=== PATIENT | female | born 1955 | race Caucasian/White ===

== ENCOUNTER 2017-03-27 11:23 | Inpatient (IN) ==
[2017-03-27] MEDS ORDERED: 0.9 % Sodium Chloride 1,000 ML IVC ONE (11:43)
[2017-03-27] MEDS ORDERED: cefTRIAXone 2,000 MG in Water for inj. (sterile) 20 ML IVP ONE ×2 (12:18→13:00)
[2017-03-27] MEDS ORDERED: Azithromycin 500 MG in D5% in Water 250 ML IVPB ONE (12:18)
--- NOTE | 2017-03-27 12:25 | Emergency Department Note ---
Disposition Clinical Impression: Generalized weakness, Abnormal EKG Pneumonia Qualifiers: Pneumonia type: due to unspecified organism Laterality: left Lung location: lower lobe of lung Qualified Code(s): J18.1 - Lobar pneumonia, unspecified organism Anemia Qualifiers: Anemia type: unspecified type Qualified Code(s): D64.9 - Anemia, unspecified Dyspnea Qualifiers: Dyspnea type: unspecified Qualified Code(s): R06.00 - Dyspnea, unspecified Disposition: Admitted As Inpatient Condition: Fair Time of Disposition: 13:39 General Adult HPI - General Chief complaint: ED Recheck/Abnormal Lab/Rx Stated complaint: KAY, low hgb Time Seen by Provider: 03/27/17 11:35 Source: patient, family Mode of arrival: ambulatory Limitations: no limitations Nursing Notes Reviewed: Yes Vital Signs Reviewed: Yes - History of Present Illness HPI Narrative: 61-year-old female presenting to the emergency department with chief complaint of shortness of breath, weakness and abnormal labs. Patient states yesterday she went to her primary care physician when they threw basic lab work. She states she was called today and told she needed to come to the emergency department for low hemoglobin. When looking through her charts hemoglobin yesterday was 6.8. Mild increase in creatinine but labs are otherwise within normal limits. Anemia looks to be microcytic. Patient denies any hematuria, melena or hematochezia. She denies any gum bleeding when she brushes her teeth. She states she does have a significant past medical history of COPD, hypertension and hypercholesterolemia. She states when she was younger she did not need iron supplementation for anemia but has never needed a blood transfusion. Patient states progressively over the past 3 months she has had increased weakness, shortness of breath and overall not feeling well. She denies any fevers or chest pain. She denies any nausea, vomiting or diarrhea. Pain Scale: 0 - Related Data Home Medications Medication Instructions Recorded Confirmed Albuterol Sulfate [Ventolin Hfa] 2 puff IH Q4H PRN 03/27/17 03/27/17 Amitriptyline [Elavil] 50 mg PO HS 03/27/17 03/27/17 Atorvastatin Calcium [Lipitor] 80 mg PO HS 03/27/17 03/27/17 Bupropion HCl [Wellbutrin Xl] 300 mg PO QAM 03/27/17 03/27/17 Cetirizine HCl [Zyrtec] 10 mg PO DAILY 03/27/17 03/27/17 Escitalopram [Lexapro] 20 mg PO DAILY 03/27/17 03/27/17 Metoprolol [Lopressor] 12.5 mg PO BID 03/27/17 03/27/17 Omeprazole [PriLOSEC] 20 mg PO BIDAC 03/27/17 03/27/17 Potassium Chloride [K-Tab ER] 10 meq PO DAILY 03/27/17 03/27/17 Ranitidine HCl [Zantac] 150 mg PO BID 03/27/17 03/27/17 SUMAtriptan succinate [Imitrex] 50 mg PO Q2H PRN 03/27/17 03/27/17 Tramadol HCl [Ultram] 50 mg PO Q6H PRN 03/27/17 03/27/17 hydroCHLOROthiazide 25 mg PO DAILY 03/27/17 03/27/17 [Hydrochlorothiazide] Allergies Allergy/AdvReac Type Severity Reaction Status Date / Time lorazepam AdvReac TACHYCARDIA Verified 03/27/17 13:16 All systems ED: reviewed and negative except as stated. Constitutional: Denies: fever, chills Eyes: Reports: as per HPI ENT ED: Reports: as per HPI Cardiovascular: Denies: chest pain, palpitations Respiratory: Reports: dyspnea. Denies: cough, wheezes, hemoptysis Gastrointestinal: Denies: abdominal pain, nausea, vomiting, hematemesis, melena , hematochezia Genitourinary: Reports: as per HPI Musculoskeletal: Reports: as per HPI Integumentary: Denies: rash, abrasion, lesions Neurological: Reports: weakness. Denies: numbness, paresthesias Psychiatric: Reports: as per HPI Endocrine: Reports: as per HPI Hematological/Lymphatic: Reports: as per HPI Allergic/Immunologic: Reports: as per HPI Past Medical History - Past Medical History Attestation: Yes The following information was validated with the patient. Medical history: Reports: hyperlipidemia, hypertension Psychiatric history: Reports: depression - Social History Smoking Status: Never smoker Alcohol use: Reports: none Drug use: Reports: none Physical Exam - General Limitations: no limitations General appearance: alert, in no apparent distress - Head Head exam: atraumatic, normocephalic, normal inspection - Eye Eye exam: Present: normal appearance. Absent: scleral icterus, conjunctival injection - ENT ENT exam: normal exam, normal oropharynx - Chest Chest inspection: Present: normal inspection, symmetric chest wall rise. Absent : tenderness, rash - Respiratory Respiratory exam: Present: normal lung sounds bilaterally. Absent: respiratory distress, wheezes - Cardiovascular Cardiovascular exam: Present: normal rhythm, tachycardia, normal heart sounds - Abdominal Exam Abdominal exam: Present: soft, Non-Tender. Absent: distention, guarding, rebound - Rectal Exam Rectal exam: Present: normal inspection, normal rectal tone, heme (-) stool. Absent: black stool, bloody stool, fecal impaction - Extremities Exam Extremities exam: Present: normal inspection, full ROM - Neurological Exam Neurological exam: Present: alert, oriented X3 - Psychiatric Psychiatric exam: Present: normal affect, normal mood - Skin Skin exam: Present: warm, intact Course Course Narrative: 61-year-old female presenting to the emergency department with chief complaint of low hemoglobin and overall weakness. Patient denies any chest pain, fever passing out this time. Patient's hemoglobin drawn yesterday was 6.8. It showed microcytic anemia. We will perform a stool occult test along with basic lab work including CBC, BMP, type and screen, EKG, troponin and chest x-ray. Patient is mildly tachycardic in the room with heart rate ranging from upper 90s to low 100s. Vital signs are otherwise within normal limits. She is nontoxic appearing. She agrees with this plan. Disposition most likely will be transfusion and admission. Disposition pending laboratory and imaging results. - Reevaluation(s) Reevaluation #1: Chest x-ray shows pneumonia. We will add Rocephin and Zithromax at this time. Patient's bedside stool occult is negative. All other labs and urinalysis are still pending at this time. We will also provide the patient with a 1 L fluid bolus. Additional lab work including lactic acid added at this time. Patient' s alert and oriented 3 in the room. Vital signs at this time. Patient agrees with this plan. Reevaluation #2: Patient's lactic acid within normal limits. Patient agrees to be admitted at this time for blood transfusion and pneumonia treatment. Patient is alert and oriented 3 in the room with stable vital signs. The admitting physician Dr. Nice agrees to accept the patient at this time. Time: 13:38 Vital Signs Temperature 97.5 F L 03/27/17 11:30 Pulse Rate 101 03/27/17 11:30 Respiratory Rate 16 03/27/17 11:30 Blood Pressure 131/87 03/27/17 11:30 O2 Sat by Pulse Oximetry 99 03/27/17 11:30 Temperature 97.5 F L 03/27/17 11:30 Pulse Rate 79 03/27/17 13:15 Respiratory Rate 16 03/27/17 13:15 Blood Pressure 112/82 03/27/17 13:15 O2 Sat by Pulse Oximetry 100 03/27/17 13:15 Oxygen Delivery Oxygen Delivery Room Air Medical Decision Making - Lab Data Result diagrams: 03/27/17 12:19 03/27/17 12:19 Lab Results 03/27/17 03/27/17 03/27/17 Range/Units 12:19 12:19 12:19 WBC 7.4 (4.3-11.1) K/mcL RBC 3.90 (3.82-4.97) M/mcL Hgb 6.9 L (11.5-15.4) g/dL Hct 25.2 L (35.3-44.9) % MCV 64.6 L (83.0-100.0) fL MCH 17.7 L (28.0-33.3) pg MCHC 27.4 L (31.6-35.5) g/dL RDW 17.9 H (11.5-14.5) % Plt Count 552 H (140-400) K/mcL MPV 8.6 L (9.4-12.4) fL Immature Gran % 0.3 (0-4) % Seg Neutrophils % 64.7 % Lymphocytes % 26.6 % Monocytes % 6.5 % Eosinophils % 1.1 % Basophils % 0.8 % Neutrophils # 4.8 (1.6-8.9) K/mcL Lymphocytes # 2.0 (0.6-4.6) K/mcL Monocytes # 0.5 (0.0-1.3) K/mcL Eosinophils # 0.1 (0.0-0.6) K/mcL Basophils # 0.1 (0.0-0.2) K/mcL Platelet Estimate Increased H (Normal) Polychromasia 1+ A (Not Present) Hypochromasia Present A (Not Present) Anisocytosis 1+ A (Not Present) Microcytosis Present A (Not Present) Ovalocytes 1+ A (Not Present) Sodium 138 (136-145) mEq/L Potassium 3.8 (3.5-4.5) mEq/L Chloride 105 (98-109) mEq/L Carbon Dioxide 25 (19-29) mEq/L BUN 14 (7-20) mg/dL Creatinine 1.09 (0.57-1.11) mg/dL Est GFR ( Amer) > 60 (> 60) Est GFR (Non-Af Amer) 51 L (> 60) BUN/Creatinine Ratio 13 (6-26) Glucose 139 H (70-99) mg/dL Calculated Osmolality 289 (280-300) Lactic Acid (0.5-2.2) mmol/L Calcium 9.4 (8.6-10.8) mg/dL Troponin I (0-0.03) ng/mL Blood Type O POSITIVE Antibody Screen NEGATIVE Crossmatch See Detail 03/27/17 03/27/17 Range/Units 12:19 12:32 WBC (4.3-11.1) K/mcL RBC (3.82-4.97) M/mcL Hgb (11.5-15.4) g/dL Hct (35.3-44.9) % MCV (83.0-100.0) fL MCH (28.0-33.3) pg MCHC (31.6-35.5) g/dL RDW (11.5-14.5) % Plt Count (140-400) K/mcL MPV (9.4-12.4) fL Immature Gran % (0-4) % Seg Neutrophils % % Lymphocytes % % Monocytes % % Eosinophils % % Basophils % % Neutrophils # (1.6-8.9) K/mcL Lymphocytes # (0.6-4.6) K/mcL Monocytes # (0.0-1.3) K/mcL Eosinophils # (0.0-0.6) K/mcL Basophils # (0.0-0.2) K/mcL Platelet Estimate (Normal) Polychromasia (Not Present) Hypochromasia (Not Present) Anisocytosis (Not Present) Microcytosis (Not Present) Ovalocytes (Not Present) Sodium (136-145) mEq/L Potassium (3.5-4.5) mEq/L Chloride (98-109) mEq/L Carbon Dioxide (19-29) mEq/L BUN (7-20) mg/dL Creatinine (0.57-1.11) mg/dL Est GFR ( Amer) (> 60) Est GFR (Non-Af Amer) (> 60) BUN/Creatinine Ratio (6-26) Glucose (70-99) mg/dL Calculated Osmolality (280-300) Lactic Acid 1.8 (0.5-2.2) mmol/L Calcium (8.6-10.8) mg/dL Troponin I 0.00 (0-0.03) ng/mL Blood Type Antibody Screen Crossmatch - EKG Data EKG #1 EKG attestation: Yes I reviewed and interpreted this EKG. EKG results narrative: Sinus rhythm. 99 bpm. Normal axis. DE interval 176, QRS 82, QTC 392. Moderate T-wave abnormality noted in the lateral leads. No signs of ST segment elevation or acute ischemia. When compared to previous EKG completed on 2012 new T-wave abnormalities noted. Attestation Statement - Attestation Attestation: I examined this patient and my medical decision-making was reviewed with the Resident Physician, Dr. Aaron. I agree with the documented findings, disposition and treatment plan as described except to the extent set forth below. Patient is a 61-year-old white female who presents to the emergency department after she received a call from her family physician telling her that her hemoglobin was low based on recent labs. She recommended that she come to the emergency department her evaluation. Patient reports that she saw her family doctor because she has had a one-month history of gradually worsening generalized weakness and dyspnea with exertion. Patient states when she was seen in the office by her doctor doctor felt that she "looked terrible", and ordered outpatient labs. Patient was told that today her hemoglobin came back at 6.8 and this was drawn yesterday. Patient has a remote history of iron deficiency anemia. Patient denies any bright red blood per rectum, no tarry black stools, no vomiting blood and no symptoms of lightheadedness or syncope. Patient denies any chest pain pressure or heaviness, and no shortness of breath at rest. I agree with patient's physical exam findings as documented. Vital signs were stable on arrival with the exception of mild tachycardia at 101 bpm. Patient was in no acute distress or signs of respiratory distress on arrival. Patient was placed on brush maker and continuous pulse ox EKG was obtained which shows some new lateral ST depression compared to prior EKG. Patient received aspirin on arrival. Patient had labs drawn and sent. Patient with stable anemia with today's hemoglobin at 6.9. Bedside rectal exam with guaiac testing was negative for any microscopic or gross blood. Patient was typed and screened and a unit of blood was ordered to be started in the emergency department, transfusion consent was signed and placed on the chart. On patient' s workup we discovered a left lower lobe pneumonia which is new and unknown to the patient. Patient was started on IV fluids for the tachycardia, lactate was added, blood cultures were obtained and show was started on community-acquired pneumonia antibiotics. Patient's heart rate responded nicely to IV fluid bolus. Lactate was within normal limits. Patient's respiratory status status has remained stable throughout the emergency Department exam. Case was discussed with the hospitalist who accepted the patient for admission for dyspnea, microcytic hypochromic anemia, left lower lobe pneumonia, and abnormal EKG. Patient's initial troponin in the emergency Department was 0.00, patient has been chest pain free throughout her ED course.
[2017-03-27 12:30] LABS: Immature Granulocytes % 0.3 % (0-4); Red Cell Distribution Width 17.9 % (11.5-14.5)
[2017-03-27 12:31] LABS: Basophils # 0.1 K/mcL (0.0-0.2); Basophils % 0.8 %; Eosinophils # 0.1 K/mcL (0.0-0.6); Eosinophils % 1.1 %; Hematocrit 25.2 % (35.3-44.9); Lymphocytes % 26.6 %; Mean Corpuscular HGB Conc 27.4 g/dL (31.6-35.5); Mean Corpuscular Hemoglobin 17.7 pg (28.0-33.3); Mean Corpuscular Volume 64.6 fL (83.0-100.0); Mean Platelet Volume 8.6 fL (9.4-12.4); Monocytes # 0.5 K/mcL (0.0-1.3); Monocytes % 6.5 %; Neutrophils # 4.8 K/mcL (1.6-8.9); Platelet Count 552 K/mcL (140-400); Segmented Neutrophils % 64.7 %
[2017-03-27 12:41] LABS: BUN/Creatinine Ratio 13 (6-26); Blood Urea Nitrogen 14 mg/dL (7-20); Calcium 9.4 mg/dL (8.6-10.8); Carbon Dioxide 25 mEq/L (19-29); Chloride 105 mEq/L (98-109); Glucose 139 mg/dL (70-99); Osmolality,Calculated 289 (280-300); Potassium 3.8 mEq/L (3.5-4.5); Sodium 138 mEq/L (136-145); eGFR For African Americans > 60 (> 60); eGFR For Non-African Americans 51 (> 60)
[2017-03-27 12:51] LABS: Hemoglobin 6.9 g/dL (11.5-15.4)
[2017-03-27 12:59] LABS: Platelet Estimate Increased (Normal)
[2017-03-27 13:00] LABS: Anisocytosis 1+ (Not Present); Hypochromasia Present (Not Present); Microcytosis Present (Not Present); Ovalocytes 1+ (Not Present)
[2017-03-27 13:01] LABS: Polychromasia 1+ (Not Present)
[2017-03-27 13:53] LABS: Bilirubin,Urine Negative (Negative); Blood,Urine Negative (Negative); Clarity,Urine Clear (Clear); Color,Urine Yellow (Yellow); Glucose,Urine (UA) Normal (Normal); Ketones,Urine Negative (Negative); Leukocyte Esterase,Urine Small (Negative); Nitrite,Urine Negative (Negative); Protein,Urine Negative (Neg-Trace); Specific Gravity,Urine 1.009 (1.010-1.025); Urobilinogen,Urine Normal (Normal)
[2017-03-27 13:56] LABS: Bacteria,Urine None Seen per hpf (None-Few); Hyaline Casts,Urine None Seen per lpf (None-Few); RBC,Urine 0-3 per hpf (0-3); Squamous Epithelial Cell,Urine Moderate per lpf (None-Few); WBC,Urine 0-3 per hpf (0-3)
[2017-03-27] MEDS ORDERED: 0.9 % Sodium Chloride 250 ML ONE (15:47)
[2017-03-27] MEDS ORDERED: traMADol 50 MG TABLET PO PRN (22:32)
[2017-03-27] MEDS ORDERED: Naloxone 0.4 MG/ML INJ IVP PRN (22:33)
--- NOTE | 2017-03-27 22:40 | Internal Med History&Physical ---
Date of Encounter: 03/27/17 Time of Encounter: 22:38 Assessment and Plan (1) Anemia Current visit: Yes Status: Acute send fe studies to confirm 1 prbc in the ED recheck H&H consult GI to eval for possible source ? Qualifiers: Anemia type: unspecified type Qualified Code(s): D64.9 - Anemia, unspecified (2) Dyspnea Current visit: Yes Status: Acute 2/2 symptomatic anemia doubt PNA Qualifiers: Dyspnea type: unspecified Qualified Code(s): R06.00 - Dyspnea, unspecified (3) Generalized weakness Current visit: Yes Status: Acute 2/2 above (4) Abnormal EKG Current visit: Yes Status: Acute related to demand from anemia recheck in the a.m after prbc Internal Medicine - H&P: HPI Chief complaint: SOB, pre-syncope History of present illness: Ms. Back is a 61 year old female who presents with SOB, pre-syncope. Found to have symptomatic anemia. She reports symptoms of a couple months of fatigue but in the last few days, got acutely worse with SOB on exertion - mild around home and pre-syncope. Denies any vaginal or GI bleed. She is not a vegan. ROS negative for cough or sputum EKG with T waver changes, [address]/CT angio chest IMPRESSION: No evidence of pulmonary embolism or acute pulmonary abnormality. XR/XR chest 1V portable IMPRESSION: Atelectasis or pneumonia in the right lung base Past Med Surg Social Fam HX - Past Medical History Medical history: hyperlipidemia, hypertension Psychiatric history: depression - Social History Smoking Status: Never smoker Alcohol use: none Drug use: none - Family History Mother Living Status: Hx Family Cardiac Disorders: Yes Father Living Status: Hx Family Cardiac Disorders: Yes Brother Living Status: Still Living Hx Family Cardiac Disorders: Yes Internal Medicine - H&P: Meds Albuterol Sulfate [Ventolin Hfa] 2 puff IH Q4H PRN 03/27/17 [History] Amitriptyline [Elavil] 50 mg PO HS 03/27/17 [History] Atorvastatin Calcium [Lipitor] 80 mg PO HS 03/27/17 [History] Bupropion HCl [Wellbutrin Xl] 300 mg PO QAM 03/27/17 [History] Cetirizine HCl [Zyrtec] 10 mg PO DAILY 03/27/17 [History] Escitalopram [Lexapro] 20 mg PO DAILY 03/27/17 [History] Metoprolol [Lopressor] 12.5 mg PO BID 03/27/17 [History] Omeprazole [PriLOSEC] 20 mg PO BIDAC 03/27/17 [History] Potassium Chloride [K-Tab ER] 10 meq PO DAILY 03/27/17 [History] Ranitidine HCl [Zantac] 150 mg PO BID 03/27/17 [History] SUMAtriptan succinate [Imitrex] 50 mg PO Q2H PRN 03/27/17 [History] Tramadol HCl [Ultram] 50 mg PO Q6H PRN 03/27/17 [History] hydroCHLOROthiazide [Hydrochlorothiazide] 25 mg PO DAILY 03/27/17 [History] 3 Allergy/AdvReac Type Severity Reaction Status Date / Time lorazepam AdvReac TACHYCARDIA Verified 03/27/17 13:16 All Systems PM: A 10-system review of systems was performed and is negative for pertinent findings except as documented above in the HPI. Review of systems: ROS 14 point review of systems reviewed as best as possible given presentation. Pertinent positive or negative as per HPI or otherwise reviewed as negative - Constitutional Vitals: Temp Pulse Resp BP Pulse Ox 97.8 F 96 18 137/84 98 03/27/17 20:00 03/27/17 20:00 03/27/17 20:00 03/27/17 20:00 03/27/17 20:00 Exam: General - AAO x 3 Psych - Appropriate affect/speech. No agitation Eyes - ADDY. Eye lids intact. No scleral icterus Heart - Sinus. RRR. S1 and S2 present. No added HS/murmurs appreciated. No elevated JVD appreciated. Lung - Adequate air entry b/l, No crackles/wheezes appreciated GI - Soft, non-tender. No hepatosplenomegaly/ascites. BS+ - No CVA/suprapubic tenderness or palpable bladder distension Internal Med - H&P Results - Labs CBC & Chem 7: 03/27/17 12:19 03/27/17 12:19 Labs: Urine 03/27/17 Range/Units 13:45 Urine Color Yellow (Yellow) Urine Clarity Clear (Clear) Urine pH 7.0 (5.0-8.0) pH Units Ur Specific [place] 1.009 L (1.010-1.025) Urine Protein Negative (Neg-Trace) mg/dL Urine Glucose (UA) Normal (Normal) mg/dL
[2017-03-27] MEDS: 0.9 % Sodium Chloride 1,000 ML IVC SCH (22:46)
[2017-03-28] MEDS ORDERED: Melatonin 3 MG TABLET PO PRN (00:02)
[2017-03-28 05:14] LABS: Mean Corpuscular Volume 67.3 fL (83.0-100.0)
[2017-03-28 05:15] LABS: Basophils # 0.1 K/mcL (0.0-0.2); Basophils % 0.6 %; Eosinophils # 0.2 K/mcL (0.0-0.6); Eosinophils % 1.9 %; Hematocrit 24.5 % (35.3-44.9); Hemoglobin 6.7 g/dL (11.5-15.4); Immature Granulocytes % 0.1 % (0-4); Lymphocytes # 2.7 K/mcL (0.6-4.6); Lymphocytes % 32.2 %; Mean Corpuscular HGB Conc 27.3 g/dL (31.6-35.5); Mean Corpuscular Hemoglobin 18.4 pg (28.0-33.3); Mean Platelet Volume 8.5 fL (9.4-12.4); Monocytes # 0.6 K/mcL (0.0-1.3); Monocytes % 6.8 %; Platelet Count 472 K/mcL (140-400); Red Blood Count 3.64 M/mcL (3.82-4.97); Red Cell Distribution Width 20.4 % (11.5-14.5); Segmented Neutrophils % 58.4 %
[2017-03-28 05:30] LABS: % Iron Saturation 5 % (15-50); BUN/Creatinine Ratio 12 (6-26); Blood Urea Nitrogen 11 mg/dL (7-20); Calcium 9.1 mg/dL (8.6-10.8); Carbon Dioxide 27 mEq/L (19-29); Chloride 108 mEq/L (98-109); Glucose 101 mg/dL (70-99); Iron 21 mcg/dL (50-170); Osmolality,Calculated 290 (280-300); Potassium 3.8 mEq/L (3.5-4.5); Sodium 140 mEq/L (136-145); Transferrin 280 mg/dL (180-382); eGFR For African Americans > 60 (> 60); eGFR For Non-African Americans 60 (> 60)
[2017-03-28 05:32] LABS: Anisocytosis 1+ (Not Present); Hypochromasia Present (Not Present); Microcytosis Present (Not Present); Ovalocytes 1+ (Not Present); Platelet Estimate Increased (Normal); Poikilocytosis 1+ (Not Present)
[2017-03-28 05:45] LABS: Ferritin 5 ng/ml (5-204)
--- NOTE | 2017-03-28 07:20 | Electrocardiograph Report ---
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
[2017-03-28] MEDS: hydroCHLOROthiazide 25 MG TABLET PO SCH (08:14)
[2017-03-28] MEDS: Famotidine 20 MG TABLET PO SCH ×2 (08:15→17:27)
[2017-03-28] MEDS: BuPROPion XL (24 HR) 150 MG TABLET PO SCH (08:15)
[2017-03-28] MEDS: Loratadine 10 MG TABLET PO SCH (08:15)
[2017-03-28] MEDS: 0.9 % Sodium Chloride 1,000 ML IVC SCH (08:20)
[2017-03-28] MEDS ORDERED: 0.9 % Sodium Chloride 500 ML ONE ×2 (08:54→14:20)
[2017-03-28] MEDS ORDERED: Levofloxacin 500 MG/100 ML 500 MG/100 ML BAG IVPB SCH (09:00)
[2017-03-28] MEDS: Acetaminophen 325 MG TABLET PO PRN ×2 (11:38→17:36)
--- NOTE | 2017-03-28 14:43 | Internal Med Progress Note ---
Date of Encounter: 03/28/17 Time of Encounter: 11:15 - Assessment and plan (1) Anemia Current Visit: Yes Status: Acute Assessment and plan: patient with severe anemia. Uncertain etiology. Gastroenterology consulted.hemoglobin 6.7 this morning. We will transfuse 2 more units of packed red blood cells. Keep patient on clear liquid diet. Continue to monitor blood counts. Patient will most likely need upper GI endoscopy and colonoscopy. Iron studies showed low iron levels and saturation. Will start patient on iron replacement therapy Qualifiers: Anemia type: iron deficiency Iron deficiency anemia type: unspecified iron deficiency Qualified Code(s): D50.9 - Iron deficiency anemia, unspecified (2) Dyspnea Current Visit: Yes Status: Acute Assessment and plan: Improving. Most likely due to anemia. Review chest x-ray. No clear infiltrate. We will repeat chest x-ray today to confirm. For now continue to hold antibiotics. Qualifiers: Dyspnea type: shortness of breath Qualified Code(s): R06.02 - Shortness of breath; R06.00 - Dyspnea, unspecified; R06.01 - Orthopnea (3) Generalized weakness Current Visit: Yes Status: Acute Assessment and plan: Most likely related to anemia. We will consult physical therapy for evaluation once her blood counts improve. (4) Abnormal EKG Current Visit: Yes Status: Acute Assessment and plan: Troponins are negative. Likely from demand ischemia due to anemia. - Subjective Interval history: Patient is awake and alert. Continues to feel tired. Denies any hematemesis or melena. No chest pain. Does have occasional heartburn. Denies using any NSAIDs at home. - Constitutional Vitals: Temp Pulse Resp BP Pulse Ox 98.0 F 76 16 138/83 96 03/28/17 12:49 03/28/17 12:49 03/28/17 12:49 03/28/17 12:49 03/28/17 09:58 General appearance: Present: cooperative, A&O X 3, answers questions appropriately - Respiratory Respiratory exam: Present: CTAB. Absent: accessory muscle use, rales, rhonchi, wheezes - Cardiovascular Cardiovascular exam: Present: RRR, +S1, +S2. Absent: diastolic murmur, gallop, rubs, systolic murmur - GI/Abdominal GI/Abdominal exam: Present: normal bowel sounds, soft, no peritoneal signs. Absent: distended, tenderness - Extremities Exam Extremities exam: Present: warm, radial pulses palpable and symmetrical. Absent : calf tenderness, cyanotic, pedal edema - Neurological Exam Neurological exam: Present: alert, CN II-XII intact, oriented X3, no focal deficits. Absent: facial droop, speech deficit - Skin Skin exam: Present: dry, intact Internal Medicine: Result - Labs CBC & Chem 7: 03/28/17 05:04 03/28/17 05:04 Labs: Short CBC 03/28/17 Range/Units 05:04 WBC 8.5 (4.3-11.1) K/mcL Hgb 6.7 L (11.5-15.4) g/dL Hct 24.5 L (35.3-44.9) % Plt Count 472 H (140-400) K/mcL Neutrophils # 5.0 (1.6-8.9) K/mcL BMP 03/28/17 05:04 Sodium 140 Potassium 3.8 Chloride 108 Carbon Dioxide 27 BUN 11 Creatinine 0.95 Glucose 101 H Calcium 9.1 Consult Discharge Plan - Plan Referrals: Gisele House MD [Primary Care Provider] -
[2017-03-28] MEDS ORDERED: Vancomycin 1,250 MG in D5% in Water 250 ML IVPB SCH ×2 (16:00→17:00)
[2017-03-28] MEDS ORDERED: SODIUM CHLORIDE/NAHCO3/KCL/PEG 4,000 ML SOLN.RECON PO ONE (17:00)
[2017-03-29 03:53] LABS: Basophils # 0.1 K/mcL (0.0-0.2); Basophils % 0.5 %; Eosinophils # 0.2 K/mcL (0.0-0.6); Eosinophils % 1.9 %; Hematocrit 36.5 % (35.3-44.9); Immature Granulocytes % 0.3 % (0-4); Lymphocytes # 2.5 K/mcL (0.6-4.6); Lymphocytes % 24.1 %; Mean Corpuscular HGB Conc 29.6 g/dL (31.6-35.5); Mean Corpuscular Hemoglobin 20.8 pg (28.0-33.3); Mean Corpuscular Volume 70.5 fL (83.0-100.0); Mean Platelet Volume 8.8 fL (9.4-12.4); Monocytes # 0.6 K/mcL (0.0-1.3); Monocytes % 6.3 %; Neutrophils # 6.8 K/mcL (1.6-8.9); Platelet Count 562 K/mcL (140-400); Red Blood Count 5.18 M/mcL (3.82-4.97); Red Cell Distribution Width 22.6 % (11.5-14.5); Segmented Neutrophils % 66.9 %
[2017-03-29 03:54] LABS: Hemoglobin 10.8 g/dL (11.5-15.4)
[2017-03-29 04:03] LABS: BUN/Creatinine Ratio 8 (6-26); Blood Urea Nitrogen 8 mg/dL (7-20); Calcium 9.4 mg/dL (8.6-10.8); Carbon Dioxide 23 mEq/L (19-29); Chloride 107 mEq/L (98-109); Glucose 111 mg/dL (70-99); Osmolality,Calculated 287 (280-300); Potassium 4.1 mEq/L (3.5-4.5); Sodium 139 mEq/L (136-145); eGFR For African Americans > 60 (> 60); eGFR For Non-African Americans 58 (> 60)
--- NOTE | 2017-03-29 08:03 | Anesthesia Evaluation PreOp ---
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) Other Medical History: GERD Anesthesia History: No Prior Anesthetic Complications, Past Anesthesia Alcohol Use: none Drug use: none Medications and Allergies Albuterol Sulfate [Ventolin Hfa] 2 puff IH Q4H PRN 03/27/17 [History] Amitriptyline [Elavil] 50 mg PO HS 03/27/17 [History] Atorvastatin Calcium [Lipitor] 80 mg PO HS 03/27/17 [History] Bupropion HCl [Wellbutrin Xl] 300 mg PO QAM 03/27/17 [History] Cetirizine HCl [Zyrtec] 10 mg PO DAILY 03/27/17 [History] Escitalopram [Lexapro] 20 mg PO DAILY 03/27/17 [History] Metoprolol [Lopressor] 12.5 mg PO BID 03/27/17 [History] Omeprazole [PriLOSEC] 20 mg PO BIDAC 03/27/17 [History] Potassium Chloride [K-Tab ER] 10 meq PO DAILY 03/27/17 [History] Ranitidine HCl [Zantac] 150 mg PO BID 03/27/17 [History] SUMAtriptan succinate [Imitrex] 50 mg PO Q2H PRN 03/27/17 [History] Tramadol HCl [Ultram] 50 mg PO Q6H PRN 03/27/17 [History] hydroCHLOROthiazide [Hydrochlorothiazide] 25 mg PO DAILY 03/27/17 [History] 3 Allergy/AdvReac Type Severity Reaction Status Date / Time lorazepam AdvReac TACHYCARDIA Verified 03/27/17 13:16 - Meds/Allergy Pre-op Review Medications Reviewed: Yes Allergies Reviewed: Yes Beta Blockers on Current Med List: Yes If Beta Blockers taken, Date/Time (Last Dose taken): 03/29/2017 at 0724 Anesthesia Results - Labs 03/29/17 03:37 03/29/17 03:37 - Imaging EKG: report reviewed (03/27/[address] DEVIATION AND MODERATE T-WAVE ABNORMALITY, CONSIDER LATERAL ISCHEMIA [-0.1+ mV T WAVE IN I/aVL/V5/V6]) Anesthesia Exam Vital Signs/O2 Sat, Most Current Temp Pulse Resp BP Pulse Ox 97.9 F 82 15 133/90 97 03/29/17 04:00 03/29/17 04:00 03/29/17 04:00 03/29/17 04:00 03/28/17 20:45 Height: 5'3''/1.6 m Weight: 197 lbs/89.4 kg NPO (# of Hours): 8 Pain Scale: 0 Pain Scale Used: Numeric (1 - 10) - HEENT Pupil (Motor): EOMI Mallampati: II Teeth: Edentulous Oral Opening: Greater than 3 - INDUSTRIAL RADIOGRAPHER LOC: Oriented INDUSTRIAL RADIOGRAPHER Motor: Normal RUE, Normal LUE, Normal RLE, Normal LLE, Normal Face INDUSTRIAL RADIOGRAPHER Sensory: Normal: RUE, LUE, RLE, LLE, Face - Cardiac Rhythm: Regular Murmur: None - Pulmonary Breath Sounds: bilateral Clear Respiratory Effort: Symmetrical Anesthesia Assess/Plan ASA Score: 3 Modified Jorge Scale for Level of Consciousness: Cooperative, oriented, and tranquil Anesthetic Plan: MAC Monitoring Plan: Standard Monitors
[2017-03-29 08:09] VITALS: BP 152/99
[2017-03-29] MEDS ORDERED: *HR* Propofol 200 MG/20 ML VIAL IVP ONE ×2 (08:09→08:33)
[2017-03-29] MEDS ORDERED: Simethicone 40 MG/0.6 ML MLS IR ONE (08:16)
[2017-03-29] MEDS ORDERED: Tetracaine/Benzocaine/Butamben 200MG/SPRAY (100SPY/BOT) MM ONE (08:16)
[2017-03-29] MEDS ORDERED: Ipratropium/Albuterol Neb 3 ML ONE (08:54)
[2017-03-29] MEDS: Famotidine 20 MG TABLET PO SCH (09:49)
[2017-03-29] MEDS: BuPROPion XL (24 HR) 150 MG TABLET PO SCH (09:50)
[2017-03-29] MEDS: hydroCHLOROthiazide 25 MG TABLET PO SCH (09:50)
[2017-03-29] MEDS: Loratadine 10 MG TABLET PO SCH (09:50)
--- NOTE | 2017-03-29 14:24 | Discharge Summary ---
Date of Encounter: 03/29/17 Time of Encounter: 11:20 - Discharge Diagnosis (1) Gastritis and duodenitis Priority: Primary Status: Acute (2) Anemia Priority: Secondary Status: Acute Qualifiers: Anemia type: iron deficiency Iron deficiency anemia type: chronic blood loss Qualified Code(s): D50.0 - Iron deficiency anemia secondary to blood loss (chronic) (3) Dyspnea Priority: Secondary Status: Acute Qualifiers: Dyspnea type: shortness of breath Qualified Code(s): R06.02 - Shortness of breath; R06.00 - Dyspnea, unspecified; R06.01 - Orthopnea (4) Generalized weakness Priority: Secondary Status: Acute (5) Abnormal EKG Priority: Secondary Status: Acute (6) Asymptomatic bacteriuria Priority: Secondary Status: Acute - Discharge Medications Prescriptions: Ferrous Sulfate [Iron] 325 mg PO BID #60 tablet Nitrofurantoin (BID) [Macrobid] 100 mg PO BID #6 capsule Home Medications: Albuterol Sulfate [Ventolin Hfa] 2 puff IH Q4H PRN 03/27/17 [History] Amitriptyline [Elavil] 50 mg PO HS 03/27/17 [History] Atorvastatin Calcium [Lipitor] 80 mg PO HS 03/27/17 [History] Bupropion HCl [Wellbutrin Xl] 300 mg PO QAM 03/27/17 [History] Cetirizine HCl [Zyrtec] 10 mg PO DAILY 03/27/17 [History] Escitalopram [Lexapro] 20 mg PO DAILY 03/27/17 [History] Metoprolol [Lopressor] 12.5 mg PO BID 03/27/17 [History] Omeprazole [PriLOSEC] 20 mg PO BIDAC 03/27/17 [History] Potassium Chloride [K-Tab ER] 10 meq PO DAILY 03/27/17 [History] Ranitidine HCl [Zantac] 150 mg PO BID 03/27/17 [History] SUMAtriptan succinate [Imitrex] 50 mg PO Q2H PRN 03/27/17 [History] Tramadol HCl [Ultram] 50 mg PO Q6H PRN 03/27/17 [History] hydroCHLOROthiazide [Hydrochlorothiazide] 25 mg PO DAILY 03/27/17 [History] Ferrous Sulfate [Iron] 325 mg PO BID #60 tablet 03/29/17 [Rx] Nitrofurantoin (BID) [Macrobid] 100 mg PO BID #6 capsule 03/29/17 [Rx] Allergies/Adverse Reactions: 3 Allergy/AdvReac Type Severity Reaction Status Date / Time lorazepam AdvReac TACHYCARDIA Verified 03/27/17 13:16 Procedures/tests Complete & Pending: Procedures Performed prior 72 hours Category Date Time Status EKG [ECG 12 lead ECG] [ECG] AM 0600 Y 03/28/17 06:00 Ordered Date of admission: 03/27/17 22:33 Primary care physician: Gisele House, Consults: 03/27/17 22:36 Consult to Gastroenterology [CONS] Routine Consulting Provider: Joseology Mary Beth Reason for Consult: anemia eval Call Completed: No Discharging clinician: Stepan Lancaster Anticipated date of discharge: 03/29/17 - Patient Status Disposition: Home, Self-Care Condition: Good Functional capacity at discharge: independent ambulation Overall status at discharge: patient is progressing back to baseline - Discharge Instructions Instructions: Anemia (GEN) Follow Up With: Gisele House MD [Primary Care Provider] - (in 1-2 weeks) Nishant Goldstein MD [Partnered Physician] - (in 1-2 weeks) Additional Instructions: pcp requested - Diet and Activity Activity: increase activity as tolerated Diet: low fat, low cholesterol, low salt diet Hospital course: Ms. Back is a 61 year old female patient who presented to the ER with complaints of exertional dyspnea and presyncope. She was found to have significant anemia with hemoglobin of 6.9. She was hospitalized and given transfusion of 3 units of packed red blood cells. Gastroenterology was consulted to evaluate for any GI bleed. Patient underwent upper GI endoscopy and colonoscopy today. She was found to have some gastritis and duodenitis. She does have iron deficiency anemia. She also had diverticulosis and a colon polyp. She does not have any agnes hematemesis or melena. She has been recommended capsule endoscopy as outpatient and this will be arranged through GI. At this time patient is feeling much better and is clinically stable for discharge home. She will need to continue to take iron supplements. Her urine culture is growing gram-positive cocci although patient is asymptomatic. She will complete a short treatment course with Macrobid. - Time Spent with Patient Total time spent providing and/or coordinating discharge services: Greater than 30 minutes (35 min) - Constitutional Vitals: Temp Pulse Resp BP Pulse Ox 98.2 F 85 18 152/99 96 03/29/17 08:04 03/29/17 08:04 03/29/17 08:04 03/29/17 08:04 03/29/17 08:04 General appearance: Present: cooperative, A&O X 3, answers questions appropriately - Respiratory Respiratory exam: Present: CTAB. Absent: accessory muscle use, rales, rhonchi, wheezes - Cardiovascular Cardiovascular exam: Present: RRR, +S1, +S2. Absent: diastolic murmur, gallop, rubs, systolic murmur - GI/Abdominal GI/Abdominal exam: Present: normal bowel sounds, soft, no peritoneal signs. Absent: distended, tenderness - Extremities Exam Extremities exam: Present: warm, radial pulses palpable and symmetrical. Absent : calf tenderness, cyanotic, pedal edema - Neurological Exam Neurological exam: Present: CN II-XII intact, oriented X3, no focal deficits. Absent: facial droop, speech deficit - Skin Skin exam: Present: dry, intact
[2017-03-29] MEDS ORDERED: Tetracaine/Benzocaine/Butamben 200MG/SPRAY (100SPY/BOT) ONE (14:34)
[2017-03-29] MEDS ORDERED: FLUARIX QUAD 2017-18 36MOS UP/PF 0.5 ML SYRINGE IM ONE (14:50)
[2017-03-29] MEDS ORDERED: Aminoglycoside Consult 1 EACH MC ONE (16:00)
--- NOTE | 2017-04-03 06:53 | Electrocardiograph Report ---
[place] [id number] Test Date: 2017-03-29 Pat Name: Chiquis Back Department: 111 Room: 2NE30 Gender: F Squilgeer: LUISA : 1955 Requested By: Stepan Lancaster Order Number: [id number] Reading MD: Niyah Jimenez Measurements Intervals Velma Rate: 94 P: 24 MS: 165 QRS: 14 QRSD: 83 T: 41 QT: 362 QTc: 414 Interpretive Statements SINUS RHYTHM NONSPECIFIC T-WAVE ABNORMALITY Electronically Signed On 04-03-2017 6:51:59 EST by Niyah Jimenez
== END 2017-03-29 16:01 | disposition home or self-care (01) | DRG 392 ==
LOC: EMEROO 11:23 → 2ANU 11:23 → 2NENU 14:20 → SUATTDRO 22:33
PROVIDERS: ADMIT Internal Medicine; ATTEND Internal Medicine
PROC: ENDOEBX (2017-03-29 08:00)

== ENCOUNTER 2017-07-08 18:07 | Inpatient (IN) ==
[2017-07-08] MEDS ORDERED: Aspirin 81 MG TAB.CHEW PO ONE (18:27)
[2017-07-08] MEDS ORDERED: Nitroglycerin 0.4 MG TAB.SUBL SL ONE (18:27)
[2017-07-08] MEDS ORDERED: Aspirin 81 MG TAB.CHEW PO STA ×2 (18:34→19:08)
--- NOTE | 2017-07-08 18:34 | Emergency Department Note ---
Disposition Clinical Impression: Acute kidney injury Pneumonia Qualifiers: Pneumonia type: due to unspecified organism Laterality: left Lung location: lower lobe of lung Qualified Code(s): J18.1 - Lobar pneumonia, unspecified organism Sepsis Qualifiers: Sepsis type: sepsis due to unspecified organism Qualified Code(s): A41.9 - Sepsis, unspecified organism Chest pain Qualifiers: Chest pain type: other chest pain Qualified Code(s): R07.89 - Other chest pain Disposition: Admitted As Inpatient Condition: Fair Time of Disposition: 21:16 General Adult HPI - General Chief complaint: ED Chest Pain Stated complaint: Chest Pain Time Seen by Provider: 07/08/17 18:18 Source: patient, family Mode of arrival: wheelchair Limitations: no limitations Nursing Notes Reviewed: Yes Vital Signs Reviewed: Yes - History of Present Illness HPI Narrative: Patient is a 61-year-old female with a past medical history of hypertension, high cholesterol, COPD requiring home oxygen, and diabetes presenting to the first department for the complaint of chest pain that started 3 days ago. Patient describes the chest pain as sharp and stabbing, substernal with radiation to the back. The pain has been constant over the past 3 days and worsening. It improves with rest and staying still and worsens with movement and exertion. Positive for diaphoresis and shortness of breath. Denies any cardiac history does not recall last time she had a stress test. She denies history of blood clots including PE or DVT. Not currently on estrogen. No recent travel or surgeries. No cancer history. Pain Scale: 10 - Related Data Home Medications Medication Instructions Recorded Confirmed Albuterol Sulfate [Ventolin Hfa] 2 puff IH Q4H PRN 03/27/17 07/08/17 Amitriptyline [Elavil] 50 mg PO HS 03/27/17 07/08/17 Atorvastatin Calcium [Lipitor] 80 mg PO HS 03/27/17 07/08/17 Bupropion HCl [Wellbutrin Xl] 300 mg PO QAM 03/27/17 07/08/17 Escitalopram [Lexapro] 20 mg PO DAILY 03/27/17 07/08/17 Metoprolol [Lopressor] 12.5 mg PO BID 03/27/17 07/08/17 Omeprazole [PriLOSEC] 20 mg PO BIDAC 03/27/17 07/08/17 Potassium Chloride [K-Tab ER] 10 meq PO DAILY 03/27/17 07/08/17 Ranitidine HCl [Zantac] 150 mg PO BID 03/27/17 07/08/17 SUMAtriptan succinate [Imitrex] 50 mg PO Q2H PRN 03/27/17 07/08/17 Tramadol HCl [Ultram] 50 mg PO Q6H PRN 03/27/17 07/08/17 hydroCHLOROthiazide 25 mg PO DAILY 03/27/17 07/08/17 [Hydrochlorothiazide] Albuterol Neb [Proventil Neb] 2.5 mg IH TID 07/08/17 07/08/17 Polyethylene Glycol 3350 [MiraLAX] 17 gm PO DAILY PRN 07/08/17 07/08/17 Tizanidine HCl 4 mg PO Q8H PRN 07/08/17 07/08/17 Previous Rx's Medication Instructions Recorded Ferrous Sulfate [Iron] 325 mg PO BID #60 tablet 03/29/17 Allergies Allergy/AdvReac Type Severity Reaction Status Date / Time lorazepam AdvReac TACHYCARDIA Verified 07/08/17 18:12 All systems ED: reviewed and negative except as stated. Review of Systems: As Per HPI Constitutional: Denies: fever, chills ENT ED: Denies: congestion Cardiovascular: Reports: chest pain, dyspnea on exertion. Denies: palpitations , orthopnea, edema, syncope, paroxysmal nocturnal dyspnea Respiratory: Reports: dyspnea. Denies: cough, wheezes, hemoptysis, sputum production Gastrointestinal: Denies: abdominal pain, nausea, vomiting Musculoskeletal: Reports: back pain Integumentary: Denies: rash Neurological: Denies: headache Past Medical History - Past Medical History Attestation: Yes The following information was validated with the patient. Medical history: Reports: COPD, hyperlipidemia, hypertension Psychiatric history: Reports: depression - Social History Smoking Status: Former smoker Alcohol use: Reports: none Drug use: Reports: none Physical Exam [facility] is being transferred to the hospital bed. She appears diaphoretic and in moderate distress. She is tachycardic in the 120s. She is alert and oriented 3. Daughter is at bedside. - General Limitations: no limitations General appearance: alert, anxious, other - Head Head exam: atraumatic, normocephalic, normal inspection - Eye Eye exam: Present: normal appearance, PERRL - ENT ENT exam: normal exam, normal oropharynx, mucous membranes moist - Neck Neck exam: Present: normal inspection, full ROM - Chest Chest inspection: Present: normal inspection, symmetric chest wall rise - Respiratory Respiratory exam: Present: normal lung sounds bilaterally. Absent: respiratory distress, wheezes - Cardiovascular Cardiovascular exam: Present: tachycardia, +S1, +S2. Absent: rubs - Expanded Cardiovascular Exam Peripheral pulses: 2+: radial (R), radial (L), dorsalis pedis (R), dorsalis pedis (L) - Abdominal Exam Abdominal exam: Present: normal bowel sounds. Absent: tenderness - Extremities Exam Extremities exam: Present: normal inspection, full ROM. Absent: tenderness - Back Exam Back exam: Present: normal inspection, full ROM. Absent: tenderness - Neurological Exam Neurological exam: Present: alert, oriented X3 - Psychiatric Psychiatric exam: Present: normal affect, normal mood - Skin Skin exam: Present: warm, intact, diaphoresis. Absent: rash Course Course Narrative: Penicillin the patient up for chest pain which will include a chest x-ray, EKG, troponin and basic labs will also add on a d-dimer. Patient was given fentanyl for her pain which she became nauseous and she received Zofran. Her symptoms are improved if she remains still states that her pain goes from a 8/10 to a 3/ 10 with sitting still. - Reevaluation(s) Reevaluation #1: Patient has a mild leukocytosis with neutrophils. Given the patient's leukocytosis, tachycardia and left-sided pleural effusion the patient will have blood cultures drawn, lactate, IV fluid bolus and broad spectrum antibiotics initiated for possible pneumonia. Her lab work also shows a troponin of 0.04 and acute kidney injury creatinine of 1.31 which is higher than baseline. She was also found to have an elevated d-dimer in which a CTA of the chest was ordered. The exam was not definitive due to low contrasts and the pulmonary vasculature, or for distal pulmonary and was not cannot be ruled out however there was no evidence of heart strain. Due to the patient's AK I re-performing the exam is recommended against at this time. Discussed the patient's case with the hospitalists and discussed the plan to admit the patient for community- acquired pneumonia as well as a chest pain rule out and he agrees with the plan and requests that I add on heparinization. I discussed this with the patient and she agrees. Time: 21:13 - Consultations Consultation #1: Spoke with Dr. Law and he agrees to accept the patient. Time: 21:19 Vital Signs Temperature 97.4 F L 07/08/17 18:10 Pulse Rate 142 07/08/17 18:10 Respiratory Rate 26 07/08/17 18:10 Blood Pressure 104/72 07/08/17 18:10 O2 Sat by Pulse Oximetry 85 07/08/17 18:10 Temperature 98.5 F 07/09/17 06:55 Pulse Rate 103 07/09/17 08:50 Respiratory Rate 17 07/09/17 07:52 Blood Pressure 133/82 07/09/17 06:55 O2 Sat by Pulse Oximetry 95 07/09/17 07:52 Oxygen Delivery Oxygen Delivery Nasal Cannula Medical Decision Making - Medical Records Medical records reviewed: Yes I reviewed the patient's medical records. - Lab Data Lab results reviewed: Yes I reviewed the patient's lab results. Result diagrams: 07/09/17 03:03 07/09/17 03:03 Lab Results 07/08/17 07/08/17 07/08/17 Range/Units 18:29 18:29 18:29 WBC 13.5 H (4.3-11.1) K/mcL RBC 4.86 (3.82-4.97) M/mcL Hgb 13.2 (11.5-15.4) g/dL Hct 40.3 (35.3-44.9) % MCV 82.9 L (83.0-100.0) fL MCH 27.2 L (28.0-33.3) pg MCHC 32.8 (31.6-35.5) g/dL RDW 14.0 (11.5-14.5) % Plt Count 314 (140-400) K/mcL MPV 9.4 (9.4-12.4) fL Immature Gran % 0.4 (0-4) % Seg Neutrophils % 71.1 % Lymphocytes % 19.5 % Monocytes % 8.1 % Eosinophils % 0.5 % Basophils % 0.4 % Neutrophils # 9.6 H (1.6-8.9) K/mcL Lymphocytes # 2.6 (0.6-4.6) K/mcL Monocytes # 1.1 (0.0-1.3) K/mcL Eosinophils # 0.1 (0.0-0.6) K/mcL Basophils # 0.1 (0.0-0.2) K/mcL Nucleated RBCs/100 WBC 0.1 H (0) /100 WBC PT 13.7 H (9.4-12.1) Seconds INR 1.3 APTT 34.1 (26.0-36.0) Seconds D-Dimer 1175 H (0-500) ng/mLFEU Sodium 133 L (136-145) mEq/L Potassium 3.1 L (3.5-5.1) mEq/L Chloride 98 (98-107) mEq/L Carbon Dioxide 23 (23-29) mEq/L BUN 16 (8-23) mg/dL Creatinine 1.31 H (0.60-1.20) mg/dL Est GFR ( Amer) 50 L (> 60) Est GFR (Non-Af Amer) 41 L (> 60) BUN/Creatinine Ratio 12 (6-26) Glucose 105 (70-105) mg/dL Calculated Osmolality 278 L (280-300) Lactic Acid (0.5-2.2) mmol/L Calcium 9.4 (8.6-10.3) mg/dL Troponin I 0.04 H* (< 0.04) ng/mL B-Natriuretic Peptide (Less than 100) pg/mL Amylase 15 L (29-103) Units/L Lipase 7 L (11-82) Units/L Urine Color (Yellow) Urine Clarity (Clear) Urine pH (5.0-8.0) pH Units Ur Specific [place] (1.010-1.025) Urine Protein (Neg-Trace) mg/dL Urine Glucose (UA) (Normal) mg/dL Urine Ketones (Negative) mg/dL Urine Blood (Negative) Urine Nitrite (Negative) Urine Bilirubin (Negative) Urine Urobilinogen (Normal) mg/dL Ur Leukocyte Esterase (Negative) Urine Microscopic RBC (0-3) per hpf Urine Microscopic WBC (0-3) per hpf Ur Squamous Epith Cells (None-Few) per lpf Urine Bacteria (None-Few) per hpf Hyaline Casts (None-Few) per lpf 07/08/17 07/08/17 07/08/17 Range/Units 18:29 21:17 21:28 WBC (4.3-11.1) K/mcL RBC (3.82-4.97) M/mcL Hgb (11.5-15.4) g/dL Hct (35.3-44.9) % MCV (83.0-100.0) fL MCH (28.0-33.3) pg MCHC (31.6-35.5) g/dL RDW (11.5-14.5) % Plt Count (140-400) K/mcL MPV (9.4-12.4) fL Immature Gran % (0-4) % Seg Neutrophils % % Lymphocytes % % Monocytes % % Eosinophils % % Basophils % % Neutrophils # (1.6-8.9) K/mcL Lymphocytes # (0.6-4.6) K/mcL Monocytes # (0.0-1.3) K/mcL Eosinophils # (0.0-0.6) K/mcL Basophils # (0.0-0.2) K/mcL Nucleated RBCs/100 WBC (0) /100 WBC PT (9.4-12.1) Seconds INR APTT (26.0-36.0) Seconds D-Dimer (0-500) ng/mLFEU Sodium (136-145) mEq/L Potassium (3.5-5.1) mEq/L Chloride (98-107) mEq/L Carbon Dioxide (23-29) mEq/L BUN (8-23) mg/dL Creatinine (0.60-1.20) mg/dL Est GFR ( Amer) (> 60) Est GFR (Non-Af Amer) (> 60) BUN/Creatinine Ratio (6-26) Glucose (70-105) mg/dL Calculated Osmolality (280-300) Lactic Acid 2.3 H (0.5-2.2) mmol/L Calcium (8.6-10.3) mg/dL Troponin I (< 0.04) ng/mL B-Natriuretic Peptide 88 (Less than 100) pg/mL Amylase (29-103) Units/L Lipase (11-82) Units/L Urine Color Yellow (Yellow) Urine Clarity Clear (Clear) Urine pH 6.5 (5.0-8.0) pH Units Ur Specific [place] 1.024 (1.010-1.025) Urine Protein Negative (Neg-Trace) mg/dL Urine Glucose (UA) Normal (Normal) mg/dL Urine Ketones Negative (Negative) mg/dL Urine Blood Trace H (Negative) Urine Nitrite Negative (Negative) Urine Bilirubin Negative (Negative) Urine Urobilinogen Normal (Normal) mg/dL Ur Leukocyte Esterase Small H (Negative) Urine Microscopic RBC 0-3 (0-3) per hpf Urine Microscopic WBC 3-5 H (0-3) per hpf Ur Squamous Epith Cells Many H (None-Few) per lpf Urine Bacteria None Seen (None-Few) per hpf Hyaline Casts None Seen (None-Few) per lpf 07/08/17 07/08/17 Range/Units 21:33 21:33 WBC 12.4 H (4.3-11.1) K/mcL RBC 4.55 (3.82-4.97) M/mcL Hgb 12.4 (11.5-15.4) g/dL Hct 38.4 (35.3-44.9) % MCV 84.4 (83.0-100.0) fL MCH 27.3 L (28.0-33.3) pg MCHC 32.3 (31.6-35.5) g/dL RDW 14.1 (11.5-14.5) % Plt Count 286 (140-400) K/mcL MPV 9.4 (9.4-12.4) fL Immature Gran % (0-4) % Seg Neutrophils % % Lymphocytes % % Monocytes % % Eosinophils % % Basophils % % Neutrophils # (1.6-8.9) K/mcL Lymphocytes # (0.6-4.6) K/mcL Monocytes # (0.0-1.3) K/mcL Eosinophils # (0.0-0.6) K/mcL Basophils # (0.0-0.2) K/mcL Nucleated RBCs/100 WBC (0) /100 WBC PT 14.1 H (9.4-12.1) Seconds INR 1.3 APTT 34.9 (26.0-36.0) Seconds D-Dimer (0-500) ng/mLFEU Sodium (136-145) mEq/L Potassium (3.5-5.1) mEq/L Chloride (98-107) mEq/L Carbon Dioxide (23-29) mEq/L BUN (8-23) mg/dL Creatinine (0.60-1.20) mg/dL Est GFR ( Amer) (> 60) Est GFR (Non-Af Amer) (> 60) BUN/Creatinine Ratio (6-26) Glucose (70-105) mg/dL Calculated Osmolality (280-300) Lactic Acid (0.5-2.2) mmol/L Calcium (8.6-10.3) mg/dL Troponin I (< 0.04) ng/mL B-Natriuretic Peptide (Less than 100) pg/mL Amylase (29-103) Units/L Lipase (11-82) Units/L Urine Color (Yellow) Urine Clarity (Clear) Urine pH (5.0-8.0) pH Units Ur Specific [place] (1.010-1.025) Urine Protein (Neg-Trace) mg/dL Urine Glucose (UA) (Normal) mg/dL Urine Ketones (Negative) mg/dL Urine Blood (Negative) Urine Nitrite (Negative) Urine Bilirubin (Negative) Urine Urobilinogen (Normal) mg/dL Ur Leukocyte Esterase (Negative) Urine Microscopic RBC (0-3) per hpf Urine Microscopic WBC (0-3) per hpf Ur Squamous Epith Cells (None-Few) per lpf Urine Bacteria (None-Few) per hpf Hyaline Casts (None-Few) per lpf - Radiology Data Radiology results reviewed: Yes I reviewed the patient's radiology results. Chest X-Ray 07/08/17 18:27 IMPRESSION: Left basilar atelectasis or consolidation. Trace left pleural effusion. D/ / 07/08/2017 18:49:22 Juan Rao MD / ana cristina Interpreting Provider: Juan Rao MD Chest X-Ray 07/08/17 18:27 IMPRESSION: Left basilar atelectasis or consolidation. Trace left pleural effusion. D/ / 07/08/2017 18:49:22 Juan Rao MD / ana cristina Interpreting Provider: Juan Rao MD Chest CTA 07/08/17 19:25 IMPRESSION: Negative for acute pulmonary embolism to the proximal lobar level. Evaluation markedly limited due to contrast bolus timing. This exam was discussed with the ED physician caring for the patient, and based on the patient's recent decline in renal function, it was decided not to repeat the examination. No secondary signs for acute pulmonary embolism, such as features of right heart strain or pulmonary infarct. Bibasilar tree-in-bud nodularity with parenchymal calcification, favored to reflect sequela of chronic recurrent aspiration given the bibasilar distribution, large hiatus hernia and esophageal features suggesting dysmotility and reflux. Areas atelectatic lung with heterogeneous enhancement also likely reflect aspiration-related airspace disease. Trace bilateral effusions. D/ / Domingo Manriquez / Domingo Manriquez Interpreting Provider: Domingo Manriquez - EKG Data EKG #1 EKG attestation: Yes I reviewed and interpreted this EKG. EKG results narrative: EKG done at 18:13 shows sinus tachycardia. AK is 165, QRS is 80, QT is 292 and QTc is 468 and these are within normal limits. Possibly minimal ST depressions in leads V2. Otherwise no acute signs of ischemia or infarction. These are changed from old EKG done on 03/29/2017. Attestation Statement - Attestation Attestation: I examined this patient and my medical decision-making was reviewed with the Resident Physician. I agree with the documented findings, disposition and treatment plan as described except to the extent set forth below. 61 yo F presents for eval of dyspnea, cp, weakness. Pt states pain in chest is sharp, stabbing. Dyspnea occurs with exertion, improves with rest, not associated with palpitations or diaphoresis. no hx of PE or DVT. Pt mildly tachy on exam. +elevated trop. +ANGIE. CTA negative for mainstem PE but unable to rule out peripheral due to poor timing. We will hydrate and start on heparin in the ED. Pt comfortable with plan for admission for further care. Pt started on Abx due to dyspnea, leukocytosis, pleural effussion and possbility of sepsis. No critical care time on this patient
[2017-07-08] MEDS ORDERED: *HR* FentaNYL (PF) 100 MCG/2 ML VIAL IVP ONE (18:40)
[2017-07-08 18:52] LABS: Basophils # 0.1 K/mcL (0.0-0.2); Basophils % 0.4 %; Eosinophils # 0.1 K/mcL (0.0-0.6); Eosinophils % 0.5 %; Hematocrit 40.3 % (35.3-44.9); Hemoglobin 13.2 g/dL (11.5-15.4); Immature Granulocytes % 0.4 % (0-4); Lymphocytes # 2.6 K/mcL (0.6-4.6); Lymphocytes % 19.5 %; Mean Corpuscular HGB Conc 32.8 g/dL (31.6-35.5); Mean Corpuscular Hemoglobin 27.2 pg (28.0-33.3); Mean Corpuscular Volume 82.9 fL (83.0-100.0); Mean Platelet Volume 9.4 fL (9.4-12.4); Monocytes # 1.1 K/mcL (0.0-1.3); Monocytes % 8.1 %; Neutrophils # 9.6 K/mcL (1.6-8.9); Nucleated Red Blood Cells 0.1 /100 WBC (0); Platelet Count 314 K/mcL (140-400); Red Blood Count 4.86 M/mcL (3.82-4.97); Segmented Neutrophils % 71.1 %
[2017-07-08] MEDS ORDERED: Ondansetron 4 MG/2 ML VIAL IVP ONE (19:00)
[2017-07-08 19:02] LABS: Calcium 9.4 mg/dL (8.6-10.3); Potassium 3.1 mEq/L (3.5-5.1)
[2017-07-08 19:06] LABS: Troponin I 0.04 ng/mL (< 0.04)
[2017-07-08 19:16] LABS: INR 1.3; Prothrombin Time 13.7 Seconds (9.4-12.1)
[2017-07-08 19:18] LABS: Activated Partial Thrombo Time 34.1 Seconds (26.0-36.0)
[2017-07-08] MEDS ORDERED: 0.9 % Sodium Chloride 500 ML IVC ONE (20:36)
[2017-07-08] MEDS ORDERED: Potassium Chloride Elixir 20 MEQ/15 ML UDC PO ONE (20:40)
[2017-07-08] MEDS ORDERED: 0.9 % Sodium Chloride 1,000 ML IVC ONE (20:40)
[2017-07-08] MEDS ORDERED: cefTRIAXone 1,000 MG in Water for inj. (sterile) 20 ML 10 ML IVP STA (20:56)
[2017-07-08] MEDS ORDERED: Azithromycin 500 MG in D5% in Water 250 ML IVPB STA (20:56)
[2017-07-08] MEDS ORDERED: *HR* Heparin 5,000 UNIT/ML VIAL IVP ONE (21:17)
[2017-07-08] MEDS ORDERED: *HR* Heparin 5,000 UNIT/ML VIAL IVP PRN ×2 (21:17)
[2017-07-08] MEDS ORDERED: Heparin 25,000 UNIT/500 ML D5W 25,000 UNIT/500 ML BAG IVC SCH (21:30)
[2017-07-08 21:34] LABS: Bilirubin,Urine Negative (Negative); Blood,Urine Trace (Negative); Clarity,Urine Clear (Clear); Color,Urine Yellow (Yellow); Glucose,Urine (UA) Normal (Normal); Ketones,Urine Negative (Negative); Leukocyte Esterase,Urine Small (Negative); Nitrite,Urine Negative (Negative); PH,Urine 6.5 pH Units (5.0-8.0); Protein,Urine Negative (Neg-Trace); Specific Gravity,Urine 1.024 (1.010-1.025); Urobilinogen,Urine Normal (Normal)
[2017-07-08 21:36] LABS: Bacteria,Urine None Seen per hpf (None-Few); Hyaline Casts,Urine None Seen per lpf (None-Few); RBC,Urine 0-3 per hpf (0-3); Squamous Epithelial Cell,Urine Many per lpf (None-Few)
[2017-07-08 21:59] LABS: Hematocrit 38.4 % (35.3-44.9); Hemoglobin 12.4 g/dL (11.5-15.4); Mean Corpuscular HGB Conc 32.3 g/dL (31.6-35.5); Mean Corpuscular Hemoglobin 27.3 pg (28.0-33.3); Mean Corpuscular Volume 84.4 fL (83.0-100.0); Mean Platelet Volume 9.4 fL (9.4-12.4); Platelet Count 286 K/mcL (140-400); Red Blood Count 4.55 M/mcL (3.82-4.97); Red Cell Distribution Width 14.1 % (11.5-14.5)
[2017-07-08 22:04] LABS: INR 1.3; Prothrombin Time 14.1 Seconds (9.4-12.1)
[2017-07-08 22:07] LABS: Activated Partial Thrombo Time 34.9 Seconds (26.0-36.0)
--- NOTE | 2017-07-08 23:36 | Internal Med History&Physical ---
Date of Encounter: 07/08/17 Time of Encounter: 22:30 Assessment and Plan (1) Chest pain Current visit: Yes Status: Acute Chest pain/epigastric pain. Cardiac versus gastric origin. Known history of gastritis. Continue PPI. Also check lipase/amylase levels. Trend troponins. Monitor with telemetry. She does have risk factors for coronary artery disease. Qualifiers: Chest pain type: other chest pain Qualified Code(s): R07.89 - Other chest pain; R07.8 - Other chest pain (2) Elevated d-dimer Current visit: Yes Status: Acute Concern for subsegmental PE as initial CT angiogram does not appear to rule out this. Will start patient on IV heparin. Also check venous Doppler of lower extremities. Plan for VQ scan on repeat CT angiogram at later date once her renal function improves. Monitor for any signs of bleeding. (3) COPD (chronic obstructive pulmonary disease) Current visit: Yes Status: Chronic Use bronchodilators as needed. CT of the chest shows chronic bibasal tree-in- bud nodularity possibly from recurrent chronic aspiration. No signs of acute pneumonia at this time. Continue O2 supplementation. Qualifiers: COPD type: chronic bronchitis Chronic bronchitis type: simple Qualified Code(s): J41.0 - Simple chronic bronchitis (4) Chronic respiratory failure with hypoxia Current visit: Yes Status: Chronic Continue O2 supplementation. (5) Acute kidney injury Current visit: Yes Status: Acute Mild acute kidney injury. Will treat with IV hydration. Patient does have signs of dehydration and an elevated lactic acid level. Monitor urine output closely. (6) Large hiatal hernia Current visit: Yes Status: Acute CT scan of the chest shows large hiatal hernia which could be contributing to her symptoms of epigastric pain and discomfort. Treat symptomatically for now with antiemetics and PPI. Referred to surgery as outpatient for further management. Internal Medicine - H&P: HPI Chief complaint: Epigastric pain, nausea Admitted From: Emergency Dept Plans for Post Hospital Care: Home History of present illness: Ms. Back is a 61 year old female patient with a history of hypertension, hyperlipidemia, COPD on home oxygen, diabetes presented to the ER with complaints of chest/epigastric pain. It began 3 days back. She describes the pain is located in the epigastric region and radiating to the back. She denies any fever or chills. She does have nausea. Has not had any episodes of emesis. Denies any shortness of breath. While in the ER she received some medication and began to develop muscle cramps in her lower extremities and mild abdominal bloating. She was hospitalized here in March of last year for low hemoglobin and underwent EGD and colonoscopy and was found to have chronic gastritis, diverticulosis and nonbleeding internal hemorrhoids. She has not had any episodes of hematemesis or melena recently. He denies any dysuria or decreased urine output. Past Med Surg Social Fam HX - Past Medical History Attestation: Yes The following information was validated with the patient. Source: patient Medical history: COPD, hyperlipidemia, hypertension Psychiatric history: depression - Social History Smoking Status: Former smoker Alcohol use: none Drug use: none - Family History Mother Living Status: Hx Family Cardiac Disorders: Yes Hx Family Medical Disorders: Yes (Blood clots) Father Living Status: Hx Family Cardiac Disorders: Yes Brother Living Status: Still Living Hx Family Cardiac Disorders: Yes - Additional Family History Additional family history: Reviewed and found to be noncontributory Internal Medicine - H&P: Meds Albuterol Sulfate [Ventolin Hfa] 2 puff IH Q4H PRN 03/27/17 [History] Amitriptyline [Elavil] 50 mg PO HS 03/27/17 [History] Atorvastatin Calcium [Lipitor] 80 mg PO HS 03/27/17 [History] Bupropion HCl [Wellbutrin Xl] 300 mg PO QAM 03/27/17 [History] Escitalopram [Lexapro] 20 mg PO DAILY 03/27/17 [History] Metoprolol [Lopressor] 12.5 mg PO BID 03/27/17 [History] Omeprazole [PriLOSEC] 20 mg PO BIDAC 03/27/17 [History] Potassium Chloride [K-Tab ER] 10 meq PO DAILY 03/27/17 [History] Ranitidine HCl [Zantac] 150 mg PO BID 03/27/17 [History] SUMAtriptan succinate [Imitrex] 50 mg PO Q2H PRN 03/27/17 [History] Tramadol HCl [Ultram] 50 mg PO Q6H PRN 03/27/17 [History] hydroCHLOROthiazide [Hydrochlorothiazide] 25 mg PO DAILY 03/27/17 [History] Ferrous Sulfate [Iron] 325 mg PO BID #60 tablet 03/29/17 [Rx] Albuterol Neb [Proventil Neb] 2.5 mg IH TID 07/08/17 [History] Polyethylene Glycol 3350 [MiraLAX] 17 gm PO DAILY PRN 07/08/17 [History] Tizanidine HCl 4 mg PO Q8H PRN 07/08/17 [History] 3 Allergy/AdvReac Type Severity Reaction Status Date / Time lorazepam AdvReac TACHYCARDIA Verified 07/08/17 18:12 All Systems PM: A 10-system review of systems was performed and is negative for pertinent findings except as documented above in the HPI. - Constitutional Constitutional: malaise, no chills, no fever(s), no night sweats - EENT Eyes: no change in vision, no discharge, no pain, no photophobia Ears: no ear discharge, no ear pain, no tinnitus Nose, mouth and throat: no dysphagia, no nasal discharge, no neck pain, no sore throat - Cardiovascular Cardiovascular ROS IM: chest pain, no diaphoresis, no dyspnea, no lightheadedness, no palpitations, no syncope - Respiratory Respiratory: no cough, no dyspnea, no wheezing, no excessive phlegm production - Gastrointestinal Gastrointestinal: abdominal pain, no diarrhea, no heartburn, no hematemesis, no hematochezia, no melena, no nausea, no vomiting - Genitourinary Genitourinary: no change in urinary stream, no dysuria, no flank pain, no hematuria - Musculoskeletal Musculoskeletal ROS IM: no numbness, no tingling - Integumentary Integumentary IM: no rash, no unusual bruising - Neurological Neurological ROS: no confusion, no convulsions, no focal weakness, no numbness, no tingling, no tremor(s) - Hematologic/Lymphatic Hematologic/Lymphatic: no easy bruising - Constitutional Vitals: Temp Pulse Resp BP Pulse Ox 99.0 F 105 21 127/89 95 07/08/17 23:11 07/08/17 23:11 07/08/17 23:11 07/08/17 23:11 07/08/17 23:11 General appearance: Present: mild distress, A&O X 3, pleasant, answers questions appropriately - Neck Neck exam general surgery: Present: supple, trachea midline. Absent: lymphadenopathy - Respiratory Respiratory exam: Present: CTAB. Absent: accessory muscle use, rales, rhonchi, wheezes - Cardiovascular Cardiovascular exam: Present: RRR, +S1, +S2. Absent: diastolic murmur, gallop, rubs, systolic murmur - GI/Abdominal GI/Abdominal exam: Present: normal bowel sounds, soft, tenderness (epigastric), no peritoneal signs. Absent: distended - Extremities Exam Extremities exam: Present: warm, radial pulses palpable and symmetrical. Absent : calf tenderness, cyanotic, pedal edema - Neurological Exam Neurological exam: Present: CN II-XII intact, oriented X3, no focal deficits. Absent: facial droop, speech deficit - Skin Skin exam: Present: dry, intact Internal Med - H&P Results - Labs CBC & Chem 7: 07/08/17 21:33 07/08/17 18:29 - EKG Data EKG shows normal: sinus rhythm Rate: tachycardia - EKG Data Interpretation IM: normal EKG - Impressions Impressions Chest X-Ray 07/08/17 18:27 IMPRESSION: Left basilar atelectasis or consolidation. Trace left pleural effusion. D/ / 07/08/2017 18:49:22 Juan Rao MD / ana cristina Interpreting Provider: Juan Rao MD Chest CTA 07/08/17 19:25 IMPRESSION: Negative for acute pulmonary embolism to the proximal lobar level. Evaluation markedly limited due to contrast bolus timing. This exam was discussed with the ED physician caring for the patient, and based on the patient's recent decline in renal function, it was decided not to repeat the examination. No secondary signs for acute pulmonary embolism, such as features of right heart strain or pulmonary infarct. Bibasilar tree-in-bud nodularity with parenchymal calcification, favored to reflect sequela of chronic recurrent aspiration given the bibasilar distribution, large hiatus hernia and esophageal features suggesting dysmotility and reflux. Areas atelectatic lung with heterogeneous enhancement also likely reflect aspiration-related airspace disease. Trace bilateral effusions. D/ / Domingo Manriquez / Domingo Manriquez Interpreting Provider: Domingo Manriquez
[2017-07-09] MEDS ORDERED: Ondansetron 4 MG/2 ML VIAL IVP PRN
[2017-07-09] MEDS ORDERED: Mag Hydrox/Al Hydrox/Simeth 30 ML UDC PO PRN
[2017-07-09] MEDS ORDERED: Naloxone 0.4 MG/ML INJ IVP PRN
[2017-07-09] MEDS ORDERED: tiZANidine 4 MG TABLET PO PRN (00:01)
[2017-07-09] MEDS ORDERED: traMADol 50 MG TABLET PO PRN (00:01)
[2017-07-09] MEDS ORDERED: SUMAtriptan succinate 50 MG TABLET PO PRN (00:01)
[2017-07-09] MEDS: Ringers Solution, Lactated 1,000 ML IVC SCH ×2 (01:18→08:56)
[2017-07-09] MEDS: Pantoprazole 40 MG VIAL IVP SCH ×2 (01:18→06:10)
[2017-07-09] MEDS: OXYCODONE Oral CONC 10 MG/0.5 ML ORAL.SYG SL PRN ×3 (01:19→14:40)
[2017-07-09 03:12] LABS: Mean Corpuscular HGB Conc 32.4 g/dL (31.6-35.5); Mean Corpuscular Hemoglobin 27.1 pg (28.0-33.3); Mean Corpuscular Volume 83.7 fL (83.0-100.0); Mean Platelet Volume 9.2 fL (9.4-12.4); Platelet Count 271 K/mcL (140-400); Red Blood Count 4.42 M/mcL (3.82-4.97)
[2017-07-09 03:34] LABS: Calcium 8.9 mg/dL (8.6-10.3); Potassium 3.2 mEq/L (3.5-5.1)
[2017-07-09] MEDS: Albuterol 2.5 MG/3 ML NEBULIZER IH SCH ×3 (07:50→20:40)
[2017-07-09] MEDS ORDERED: Piperacillin/Tazobactam 3.375 GM in 0.9 % Sodium Chloride Mini Bag 100 ML IVPB SCH (08:00)
[2017-07-09] MEDS: BuPROPion XL (24 HR) 150 MG TABLET PO SCH (08:55)
[2017-07-09] MEDS ORDERED: Famotidine 20 MG TABLET PO SCH (09:00)
--- NOTE | 2017-07-09 10:25 | Infectious Disease Progress No ---
Date of Encounter: 07/09/17 Time of Encounter: 10:25 - Assessment and Plan (1) Acute respiratory failure with hypoxia Current Visit: Yes Status: Acute (2) Pneumonia Current Visit: Yes Status: Acute Qualifiers: Pneumonia type: due to unspecified organism Laterality: left Lung location: lower lobe of lung Qualified Code(s): J18.1 - Lobar pneumonia, unspecified organism (3) Chest pain Current Visit: Yes Status: Acute Qualifiers: Chest pain type: other chest pain Qualified Code(s): R07.89 - Other chest pain; R07.8 - Other chest pain (4) Acute kidney injury Current Visit: Yes Status: Acute (5) Elevated d-dimer Current Visit: Yes Status: Acute (6) COPD (chronic obstructive pulmonary disease) Current Visit: Yes Status: Chronic Qualifiers: COPD type: chronic bronchitis Chronic bronchitis type: simple Qualified Code(s): J41.0 - Simple chronic bronchitis (7) Large hiatal hernia Current Visit: Yes Status: Acute - Subjective Interval history: Patient reports having aching epigastric pain 2 days ago right below sternum that radiated to the back. Initially pain started as intermittent and progressively worsened. She developed shortness of breath with this. She denies fevers chills, runny nose, sore throat, chest pain, palpitations, cough, sputum, abdominal pain, nausea, vomiting, diarrhea, lower extremity swelling. She denies any sick contacts. Reports she has a history of gastric reflux and has recently been having frequent metallic taste in the mouth at night. She does not use oxygen at home. Patient had CTA which showed left lower lobe basilar consolidation and chronic aspiration. She also had elevated d-dimer and CTA was done with low contrast and was indeterminant of PE. Infect Dis PN-Objective Data - Labs CBC & Chem 7: 07/09/17 03:03 07/09/17 03:03 Labs: Laboratory Results - last 24 hr 07/09/17 07/09/17 07/09/17 00:47 03:03 03:03 WBC 9.5 RBC 4.42 Hgb 12.0 Hct 37.0 MCV 83.7 MCH 27.1 L MCHC 32.4 RDW 14.0 Plt Count 271 MPV 9.2 L APTT Sodium 136 Potassium 3.2 L Chloride 101 Carbon Dioxide 25 BUN 13 Creatinine 1.19 Est GFR ( Amer) 56 L Est GFR (Non-Af Amer) 46 L BUN/Creatinine Ratio 11 Glucose 103 Calculated Osmolality 282 Lactic Acid Calcium 8.9 Troponin I 0.03 07/09/17 07/09/17 07/09/17 03:03 03:03 06:28 WBC RBC Hgb Hct MCV MCH MCHC RDW Plt Count MPV APTT 95.3 H D Sodium Potassium Chloride Carbon Dioxide BUN Creatinine Est GFR ( Amer) Est GFR (Non-Af Amer) BUN/Creatinine Ratio Glucose Calculated Osmolality Lactic Acid 0.6 Calcium Troponin I 0.03 07/09/17 09:04 WBC RBC Hgb Hct MCV MCH MCHC RDW Plt Count MPV APTT 42.1 H D Sodium Potassium Chloride Carbon Dioxide BUN Creatinine Est GFR ( Amer) Est GFR (Non-Af Amer) BUN/Creatinine Ratio Glucose Calculated Osmolality Lactic Acid Calcium Troponin I Exam - Constitutional Vitals: Temp Pulse Resp BP Pulse Ox 98.5 F 103 17 133/82 95 07/09/17 06:55 07/09/17 08:50 07/09/17 07:52 07/09/17 06:55 07/09/17 07:52 - Additional findings Additional findings: General: Pleasant without distress HEENT: Head atraumatic, normocephalic, EOMI, PERRL, neck nontender to palpation , absent lymphadenopathy, Moist Mucous Membranes, Heart: Regular rate and rhythm with no murmur Lungs: Clear to auscultation bilaterally Abdomen: Soft nontender, nondistended positive bowel sounds Skin: warm and dry Extremities: Absent pedal edema, Neuro: Alert oriented 3 Vascular: Pedal and radial pulses 2 out of 4 Consult Discharge Plan - Plan Referrals: Gisele House MD [Primary Care Provider] - 07/19/17 2:00 pm ()
--- NOTE | 2017-07-09 10:37 | Internal Med Progress Note ---
<Favian Cross - Last Filed: 07/09/17 13:32> Date of Encounter: 07/09/17 Time of Encounter: 10:35 - Assessment and plan (1) Acute respiratory failure with hypoxia Current Visit: Yes Status: Acute Assessment and plan: 2nd to aspiratio pna in setting of COPD and large hiatal hernia/GERD, possible PE Patient also had elevated d-dimer with initial CTA which was indeterminate due to use of low contrast dose due to ANGIE. Will repeat CTA as renal function normalized. continue O2 supplentation 2L: plan to wean as patient does not use O2 at home continue neubulizer and zosyn (2) Pneumonia Current Visit: Yes Status: Acute Assessment and plan: CTA shows evidence of Left lower lobe pneumonia secondary to aspiration. Initial white blood cell count 12.4 Patient started on Zosyn. Blood cultures and sputum culture pending. Qualifiers: Pneumonia type: due to unspecified organism Laterality: left Lung location: lower lobe of lung Qualified Code(s): J18.1 - Lobar pneumonia, unspecified organism (3) Elevated d-dimer Current Visit: Yes Status: Acute Assessment and plan: elevated d-dimer, tachycardia, tachypenia wells score 1.5 started on heparin drip for PE absent LE swelling initial CTA inconclusive due to use of low dose contrast repeat CTA will d/c heparin if CTA negative (4) Chest pain Current Visit: Yes Status: Acute Assessment and plan: patient had aching epigastric pain that radiated to the back Troponin 0.04, 0.03, 0.03: Adynamic likely secondary to demand ischemia. Amylase and lipase within normal limits. EKG sinus rhythm with new right bundle branch block a change from previous, will repeat EKG no previous hx of cardiovascular disease echocardiogram pending continue aspirin, statin, metoprolol. Qualifiers: Chest pain type: other chest pain Qualified Code(s): R07.89 - Other chest pain; R07.8 - Other chest pain (5) Acute kidney injury Current Visit: Yes Status: Resolved Assessment and plan: resolved. d/c IVF (6) COPD (chronic obstructive pulmonary disease) Current Visit: Yes Status: Chronic Assessment and plan: hx of COPD not in exacerbation continue home nebulizer treatment Qualifiers: COPD type: chronic bronchitis Chronic bronchitis type: simple Qualified Code(s): J41.0 - Simple chronic bronchitis (7) Large hiatal hernia Current Visit: Yes Status: Acute Assessment and plan: Seen on CTA reports worsening metallic taste of mouth hgb stable BUN 13 denies hematemesis, melena, hematochezia continue PPI. reduce dose to pantoprazole 40mg PO daily - Subjective Interval history: Patient reports having aching epigastric pain 2 days ago right below sternum that radiated to the back. Initially pain started as intermittent and progressively worsened. She developed shortness of breath with this. She denies fevers chills, runny nose, sore throat, chest pain, palpitations, cough, sputum, abdominal pain, nausea, vomiting, diarrhea, lower extremity swelling. She denies any sick contacts. Reports she has a history of gastric reflux and has recently been having frequent metallic taste in the mouth at night. She does not use oxygen at home. Patient had CTA which showed left lower lobe basilar consolidation and chronic aspiration. She also had elevated d-dimer and CTA was done with low contrast and was indeterminant of PE. - Constitutional Vitals: Temp Pulse Resp BP Pulse Ox 98.5 F 103 17 133/82 95 07/09/17 06:55 07/09/17 08:50 07/09/17 07:52 07/09/17 06:55 07/09/17 07:52 General appearance: Present: mild distress, A&O X 3, pleasant, answers questions appropriately - Other Additional findings: General: Pleasant without distress HEENT: Head atraumatic, normocephalic, EOMI, PERRL, neck nontender to palpation , absent lymphadenopathy, Moist Mucous Membranes, Heart: Regular rate and rhythm with no murmur Lungs: Clear to auscultation bilaterally Abdomen: Soft nontender, nondistended positive bowel sounds Skin: warm and dry Extremities: Absent pedal edema, Neuro: Alert oriented 3 Vascular: Pedal and radial pulses 2 out of 4 Internal Medicine: Result - Labs CBC & Chem 7: 07/09/17 03:03 07/09/17 03:03 Labs: Short CBC 07/09/17 Range/Units 03:03 WBC 9.5 (4.3-11.1) K/mcL Hgb 12.0 (11.5-15.4) g/dL Hct 37.0 (35.3-44.9) % Plt Count 271 (140-400) K/mcL BMP 07/09/17 03:03 Sodium 136 Potassium 3.2 L Chloride 101 Carbon Dioxide 25 BUN 13 Creatinine 1.19 Glucose 103 Calcium 8.9 Cardiac Enzymes 07/09/17 07/09/17 Range/Units 00:47 06:28 Troponin I 0.03 0.03 (< 0.04) ng/mL - ABG Interpretation ABG results: PT/INR, D-dimer PT 14.1 Seconds (9.4-12.1) H 07/08/17 21:33 D-Dimer 1175 ng/mLFEU (0-500) H 07/08/17 18:29 Consult Discharge Plan - Plan Referrals: Gisele House MD [Primary Care Provider] - 07/19/17 2:00 pm () <Lorenzo Menon H - Last Filed: 07/09/17 15:33> Date of Encounter: 07/09/17 - Assessment and plan (1) Acute respiratory failure with hypoxia Current Visit: Yes Status: Acute (2) Pneumonia Current Visit: Yes Status: Acute Qualifiers: Pneumonia type: due to unspecified organism Laterality: left Lung location: lower lobe of lung Qualified Code(s): J18.1 - Lobar pneumonia, unspecified organism (3) Elevated d-dimer Current Visit: Yes Status: Acute (4) Chest pain Current Visit: Yes Status: Acute Qualifiers: Chest pain type: other chest pain Qualified Code(s): R07.89 - Other chest pain; R07.8 - Other chest pain (5) Acute kidney injury Current Visit: Yes Status: Resolved (6) COPD (chronic obstructive pulmonary disease) Current Visit: Yes Status: Chronic Qualifiers: COPD type: chronic bronchitis Chronic bronchitis type: simple Qualified Code(s): J41.0 - Simple chronic bronchitis (7) Large hiatal hernia Current Visit: Yes Status: Acute - Constitutional Vitals: Temp Pulse Resp BP Pulse Ox 98 F 100 19 117/86 96 07/09/17 15:23 07/09/17 15:23 07/09/17 15:23 07/09/17 15:23 07/09/17 15:23 Internal Medicine: Result - Labs CBC & Chem 7: 07/09/17 03:03 07/09/17 03:03 Labs: Short CBC 03/13/18 Range/Units 03:03 WBC 9.5 (4.3-11.1) K/mcL Hgb 12.0 (11.5-15.4) g/dL Hct 37.0 (35.3-44.9) % Plt Count 271 (140-400) K/mcL BMP 07/09/17 03:03 Sodium 136 Potassium 3.2 L Chloride 101 Carbon Dioxide 25 BUN 13 Creatinine 1.19 Glucose 103 Calcium 8.9 Cardiac Enzymes 07/09/17 07/09/17 Range/Units 00:47 06:28 Troponin I 0.03 0.03 (< 0.04) ng/mL - ABG Interpretation ABG results: PT/INR, D-dimer PT 14.1 Seconds (9.4-12.1) H 07/08/17 21:33 D-Dimer 1175 ng/mLFEU (0-500) H 07/08/17 18:29 - Impressions Impressions Chest CTA 07/09/17 10:21 IMPRESSION: 1. No evidence of acute pulmonary embolism. No evidence of aortic aneurysm or dissection. 2. Small bilateral pleural effusions and lower lobe atelectatic changes worse on the left. 3. Large hiatal hernia redemonstrated. 4. Cardiomegaly and mild pericardial effusion. D/ / 07/09/2017 12:37:40 Carolynn Singh MD / aneta Interpreting Provider: Carolynn Singh MD - Attending Attestation acute hypoxic resp failure secondary to aspiration pneumonia present upon admission switch to Unasyn large hiatal hernia, consider surgery consult if still symptomatic no COPE exacerbation I examined this patient and my medical decision-making was reviewed with the Resident Physician. I agree with the documented findings, disposition and treatment plan as described except to the extent set forth below.
[2017-07-09] MEDS ORDERED: Ringers Solution, Lactated 1,000 ML IVC SCH (13:33)
[2017-07-09] MEDS ORDERED: GI Cocktail 40 ML EACH PO ONE (14:36)
--- NOTE | 2017-07-09 16:59 | Electrocardiograph Report ---
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
[2017-07-09] MEDS: Ampicillin/Sulbactam 1,500 MG in 0.9 % Sodium Chloride Mini Bag 100 ML IVPB SCH (17:39)
--- NOTE | 2017-07-09 17:46 | Electrocardiograph Report ---
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
[2017-07-10 03:51] LABS: Basophils % 0.4 %; Eosinophils # 0.2 K/mcL (0.0-0.6); Eosinophils % 2.2 %; Hematocrit 33.5 % (35.3-44.9); Hemoglobin 10.8 g/dL (11.5-15.4); Immature Granulocytes % 0.3 % (0-4); Lymphocytes # 1.7 K/mcL (0.6-4.6); Lymphocytes % 25.3 %; Mean Corpuscular HGB Conc 32.2 g/dL (31.6-35.5); Mean Corpuscular Hemoglobin 27.4 pg (28.0-33.3); Mean Platelet Volume 9.3 fL (9.4-12.4); Monocytes # 0.7 K/mcL (0.0-1.3); Monocytes % 10.1 %; Neutrophils # 4.2 K/mcL (1.6-8.9); Platelet Count 273 K/mcL (140-400); Red Blood Count 3.94 M/mcL (3.82-4.97); Segmented Neutrophils % 61.7 %
[2017-07-10] MEDS: Ampicillin/Sulbactam 1,500 MG in 0.9 % Sodium Chloride Mini Bag 100 ML IVPB SCH ×4 (05:08→17:51)
[2017-07-10 06:07] LABS: BUN/Creatinine Ratio 8 (6-26); Blood Urea Nitrogen 9 mg/dL (8-23); Calcium 8.9 mg/dL (8.6-10.3); Carbon Dioxide 26 mEq/L (23-29); Chloride 106 mEq/L (98-107); Glucose 89 mg/dL (70-105); Osmolality,Calculated 288 (280-300); Sodium 140 mEq/L (136-145); eGFR For African Americans > 60 (> 60); eGFR For Non-African Americans 51 (> 60)
[2017-07-10] MEDS: Pantoprazole 40 MG VIAL IVP SCH (08:02)
[2017-07-10] MEDS: Aspirin 81 MG TAB.CHEW PO SCH (08:02)
[2017-07-10] MEDS: BuPROPion XL (24 HR) 150 MG TABLET PO SCH (08:02)
[2017-07-10] MEDS: OXYCODONE Oral CONC 10 MG/0.5 ML ORAL.SYG SL PRN (08:09)
[2017-07-10] MEDS: Albuterol 2.5 MG/3 ML NEBULIZER IH SCH ×3 (08:10→19:56)
--- NOTE | 2017-07-10 09:27 | Internal Med Progress Note ---
<Favian Cross - Last Filed: 07/10/17 09:25> Date of Encounter: 07/10/17 Time of Encounter: 09:25 - Assessment and plan (1) Acute respiratory failure with hypoxia Current Visit: Yes Status: Acute Assessment and plan: 2nd to aspiration pna in setting of COPD and large hiatal hernia/GERD, PE ruled out repeat CTA negative wean off of supplemental O2 continue neubulizer and unasyn (2) Pneumonia Current Visit: Yes Status: Acute Assessment and plan: CTA shows evidence of Left lower lobe pneumonia secondary to aspiration. leukocytosis resolved zosyn d/c yesterday and patient on unasyn (continue for total 7 days) Blood cultures and sputum culture pending. Qualifiers: Pneumonia type: due to unspecified organism Laterality: left Lung location: lower lobe of lung Qualified Code(s): J18.1 - Lobar pneumonia, unspecified organism (3) Elevated d-dimer Current Visit: Yes Status: Ruled-out Assessment and plan: elevated d-dimer, tachycardia, tachypenia repeat CTA negative heparin drip d/c yesterday (4) Chest pain Current Visit: Yes Status: Acute Assessment and plan: patient had aching epigastric pain that radiated to the back Troponin 0.04, 0.03, 0.03: Adynamic likely secondary to demand ischemia. Amylase and lipase within normal limits. repeat EKG shows sinus rhythm with no ST-T wave changes. echocardiogram report pending. continue aspirin, statin, metoprolol. this is likely non-cardiac chest pain 2nd to large hiatal hernia and GERD. Qualifiers: Chest pain type: other chest pain Qualified Code(s): R07.89 - Other chest pain; R07.8 - Other chest pain (5) Acute kidney injury Current Visit: Yes Status: Resolved Assessment and plan: resolved. renal function stable continue to monitor (6) COPD (chronic obstructive pulmonary disease) Current Visit: Yes Status: Chronic Assessment and plan: hx of COPD not in exacerbation continue home nebulizer treatment Qualifiers: COPD type: chronic bronchitis Chronic bronchitis type: simple Qualified Code(s): J41.0 - Simple chronic bronchitis (7) Large hiatal hernia Current Visit: Yes Status: Acute Assessment and plan: Seen on CTA patient had repeat stabbing sharp epigastric pain 2 hours after her meal yesterday. she was given GI cocktail and her pain did not return. since patient has aspiration pna due to reflux 2nd to large hiatal hernia she will need to be evaluated by surgery outpatient if correction is recommended. - Subjective Interval history: reports she slept well overnight and did not have any more epigastric pain. Her sob has improved. She denies headache, chest pain, N/V/D. She is tolerating a regular diet. - Constitutional Vitals: Temp Pulse Resp BP Pulse Ox 98.8 F 87 18 109/70 96 07/10/17 06:52 07/10/17 07:50 07/10/17 06:52 07/10/17 06:52 07/10/17 06:52 General appearance: Present: mild distress, A&O X 3, pleasant, answers questions appropriately - Other Additional findings: General: plesant without distress Heart: Regular rate and rhythm with no murmur Lungs: Clear to auscultation bilaterally Abdomen: mild epigastric tenderness to palpation, +BS, absent distention Skin: warm and dry Extremities: Absent pedal edema, Neuro: alert oriented x3 Vascular: Pedal and radial pulses 2 out of 4 Internal Medicine: Result - Labs CBC & Chem 7: 07/10/17 03:08 07/10/17 03:08 Labs: Short CBC 07/10/17 Range/Units 03:08 WBC 6.8 (4.3-11.1) K/mcL Hgb 10.8 L (11.5-15.4) g/dL Hct 33.5 L (35.3-44.9) % Plt Count 273 (140-400) K/mcL Neutrophils # 4.2 (1.6-8.9) K/mcL BMP 07/10/17 03:08 Sodium 140 Potassium 4.0 Chloride 106 Carbon Dioxide 26 BUN 9 Creatinine 1.09 Glucose 89 Calcium 8.9 - ABG Interpretation ABG results: PT/INR, D-dimer PT 14.1 Seconds (9.4-12.1) H 07/08/17 21:33 D-Dimer 1175 ng/mLFEU (0-500) H 07/08/17 18:29 Consult Discharge Plan - Plan Referrals: Amanda Maravilla, DIABETES NURSE [Advanced Practice Nurse] - 07/19/17 2:00 pm <Lorenzo Menon H - Last Filed: 07/10/17 10:22> Date of Encounter: 07/10/17 - Assessment and plan (1) Acute respiratory failure with hypoxia Current Visit: Yes Status: Acute (2) Pneumonia Current Visit: Yes Status: Acute Qualifiers: Pneumonia type: due to unspecified organism Laterality: left Lung location: lower lobe of lung Qualified Code(s): J18.1 - Lobar pneumonia, unspecified organism (3) Elevated d-dimer Current Visit: Yes Status: Ruled-out (4) Chest pain Current Visit: Yes Status: Acute Qualifiers: Chest pain type: other chest pain Qualified Code(s): R07.89 - Other chest pain; R07.8 - Other chest pain (5) Acute kidney injury Current Visit: Yes Status: Resolved (6) COPD (chronic obstructive pulmonary disease) Current Visit: Yes Status: Chronic Qualifiers: COPD type: chronic bronchitis Chronic bronchitis type: simple Qualified Code(s): J41.0 - Simple chronic bronchitis (7) Large hiatal hernia Current Visit: Yes Status: Acute - Constitutional Vitals: Temp Pulse Resp BP Pulse Ox 98.8 F 87 18 109/70 95 07/10/17 06:52 07/10/17 07:50 07/10/17 08:10 07/10/17 06:52 07/10/17 08:10 Internal Medicine: Result - Labs CBC & Chem 7: 07/10/17 03:08 07/10/17 03:08 Labs: Short CBC 07/10/17 Range/Units 03:08 WBC 6.8 (4.3-11.1) K/mcL Hgb 10.8 L (11.5-15.4) g/dL Hct 33.5 L (35.3-44.9) % Plt Count 273 (140-400) K/mcL Neutrophils # 4.2 (1.6-8.9) K/mcL BMP 07/10/17 03:08 Sodium 140 Potassium 4.0 Chloride 106 Carbon Dioxide 26 BUN 9 Creatinine 1.09 Glucose 89 Calcium 8.9 - ABG Interpretation ABG results: PT/INR, D-dimer PT 14.1 Seconds (9.4-12.1) H 07/08/17 21:33 D-Dimer 1175 ng/mLFEU (0-500) H 07/08/17 18:29 - Attending Attestation acute hypoxic resp failure secondary to aspiration pneumonia present upon admission she switched to Unasyn, day 2 large hiatal hernia, surgery follow up as outpatient says she chockes with liquids sometimes, order speech pathology conult no COPE exacerbation I examined this patient and my medical decision-making was reviewed with the Resident Physician. I agree with the documented findings, disposition and treatment plan as described except to the extent set forth below.
--- NOTE | 2017-07-10 11:12 | Gastroenterology Consult Note ---
<Roula Maxwell - Last Filed: 07/10/17 11:08> Date of Encounter: 07/10/17 Time of Encounter: 11:05 - Assessment and plan (1) Chest pain Current Visit: Yes Status: Acute Assessment and plan: May be related to GI. Pt had breakfast this am, will schedule for EGD in the am. She has GERD which is unrelieved with prilosec and zantac, EGD 04/14 showed gastritis and duodenitis Qualifiers: Chest pain type: other chest pain Qualified Code(s): R07.89 - Other chest pain; R07.8 - Other chest pain (2) Large hiatal hernia Current Visit: Yes Status: Acute Assessment and plan: May need surgical referral, as she is having aspiration pneumonia. - Time Spent With Patient Total time spent is greater than 50% in coordination of care (as documented) at patient's floor/unit and/or counseling patient: GI History of Present Illness - Data of Consult Patient: known to practice within the last 3 years Consult date: 07/10/17 Requesting Physician: Yaa Garner CNP - Consult Narrative Reason for consult: epigastric pain History of present illness: Ms. Back is a 61 year old female patient with a history of hypertension, hyperlipidemia, COPD on home oxygen and diabetes. She presented to the ER with complaints of chest/epigastric pain x 3 days. She states pain comes and goes, and is so severe that she just has to stop and hold pressure to the area. She states, " I thought I was having a heart attack". She also complains of GERD that has been persistent on prilosec and zantac. She denies any fever or chills. She does have nausea no vomiting. She was hospitalized here in March 2017 for anemia and underwent EGD and colonoscopy and was found to have chronic gastritis, diverticulosis and nonbleeding internal hemorrhoids. She has not had any episodes of hematemesis or melena.Labs show a Hgb 10.8, Troponin 0.04, EKG sinus rhythm with nonspecific t-wave abnormality. CT chest shows large hiatal hernia, chronic recurrent aspiration, small pleural effusions and small pericardial effusion. Colonoscopy: 04/14 6 mm benign polyp in sigmoid colon, diverticulosis, internal hemorrhoids EGD: 04/14 esophagitis, gastritis NSAIDS/ASA: asa 81 mg Anticoagulants: heparin dc'd Past Med Surg Social Fam HX - Past Medical History Medical history: COPD, hyperlipidemia, hypertension Psychiatric history: depression - Social History Smoking Status: Former smoker Alcohol use: none Drug use: none - Family History Mother Living Status: Hx Family Cardiac Disorders: Yes Hx Family Medical Disorders: Yes (Blood clots) Father Living Status: Hx Family Cardiac Disorders: Yes Brother Living Status: Still Living Hx Family Cardiac Disorders: Yes Review of Systems: GI: as per [facility]: denies fever, or chills EYES: denies yellow discoloration ENT: denies pain with swallowing or difficulty swallowing CARDIO: see HPI RESP: chronic Shortness of breath with exertion : denies change in color of urine NEURO: weakness HEME: Denies any bruising MS: denies joint pain, joint swelling or back pain. DERM: denies rash or itching PSYCH: history of anxiety and depression - Constitutional Vitals: Temp Pulse Resp BP Pulse Ox 98.8 F 87 18 109/70 95 07/10/17 06:52 07/10/17 07:50 07/10/17 08:10 07/10/17 06:52 07/10/17 08:10 Exam: CONSTITUTIONAL:~alert, no acute distress.~HEAD:~normocephalic.~EYES:~no jaundice.~NECK:~no obvious swelling.~HEART:~regular rate and rhythm, no murmurs. ~LUNGS:~bilateral poor air entry.~ABDOMEN:~non distended, soft, tender to epigastric area, no masses palpable, no organomegaly, laproscopic scars well healed.~RECTAL EXAM:~Deferred.~EXTREMITIES:~no clubbing, cyanosis or edema.~SKIN :~no stigmata of chronic liver disease, brown discoloration lower legs.~ NEUROLOGIC:~no obvious focal defect.~~~~ Results - Labs CBC & Chem 7: 07/10/17 03:08 07/10/17 03:08 Labs: Last Result Calcium 8.9 mg/dL (8.6-10.3) 07/10/17 03:08 Troponin I 0.03 ng/mL (< 0.04) 07/09/17 06:28 Entire Visit Hgb 10.8 g/dL (11.5-15.4) L 07/10/17 03:08 Hct 33.5 % (35.3-44.9) L 07/10/17 03:08 PT 14.1 Seconds (9.4-12.1) H 07/08/17 21:33 Amylase 15 Units/L (29-103) L 07/08/17 18:29 Lipase 7 Units/L (11-82) L 07/08/17 18:29 - ABG ABG results: PT/INR, D-dimer PT 14.1 Seconds (9.4-12.1) H 07/08/17 21:33 D-Dimer 1175 ng/mLFEU (0-500) H 07/08/17 18:29 Consult Discharge Plan - Plan Referrals: Amanda Maravilla, TING [Advanced Practice Nurse] - 07/19/17 2:00 pm <Nishant Goldstein - Last Filed: 07/10/17 17:47> Date of Encounter: 07/10/17 Time of Encounter: 17:30 - Time Spent With Patient Total time spent is greater than 50% in coordination of care (as documented) at patient's floor/unit and/or counseling patient: GI History of Present Illness - Data of Consult Requesting Physician: Yaa Garner CNP - Consult Narrative History of present illness: Ms. Back is a 61 year old female - Constitutional Vitals: Temp Pulse Resp BP Pulse Ox 98.9 F 84 18 124/86 96 07/10/17 16:02 07/10/17 16:02 07/10/17 16:33 07/10/17 16:02 07/10/17 16:33 Results - Labs CBC & Chem 7: 07/10/17 03:08 07/10/17 03:08 Labs: Last Result Calcium 8.9 mg/dL (8.6-10.3) 07/10/17 03:08 Troponin I 0.03 ng/mL (< 0.04) 07/09/17 06:28 Entire Visit Hgb 10.8 g/dL (11.5-15.4) L 07/10/17 03:08 Hct 33.5 % (35.3-44.9) L 07/10/17 03:08 PT 14.1 Seconds (9.4-12.1) H 07/08/17 21:33 Amylase 15 Units/L (29-103) L 07/08/17 18:29 Lipase 7 Units/L (11-82) L 07/08/17 18:29 - ABG ABG results: PT/INR, D-dimer PT 14.1 Seconds (9.4-12.1) H 07/08/17 21:33 D-Dimer 1175 ng/mLFEU (0-500) H 07/08/17 18:29 - Attending Attestation I have personally performed a face to face evaluation on this patient. I have reviewed and agree with the care plan. History and Exam by me shows: Patient with chest pain and some symptom of dysphagia. CT chest showed large hiatal hernia. rec: EGD to rule out esophagitis etc
[2017-07-10] MEDS ORDERED: SUMAtriptan succinate 50 MG TABLET PO PRN (14:51)
[2017-07-11] MEDS: Ampicillin/Sulbactam 1,500 MG in 0.9 % Sodium Chloride Mini Bag 100 ML IVPB SCH ×5 (00:09→23:50)
[2017-07-11] MEDS: Albuterol 2.5 MG/3 ML NEBULIZER IH SCH ×3 (07:46→20:30)
[2017-07-11] MEDS: Pantoprazole 40 MG VIAL IVP SCH (08:16)
[2017-07-11] MEDS: BuPROPion XL (24 HR) 150 MG TABLET PO SCH (08:16)
[2017-07-11] MEDS: Aspirin 81 MG TAB.CHEW PO SCH (08:16)
--- NOTE | 2017-07-11 11:27 | Internal Med Progress Note ---
<Favian Cross - Last Filed: 07/11/17 11:23> Date of Encounter: 07/11/17 Time of Encounter: 11:23 - Assessment and plan (1) Large hiatal hernia Current Visit: Yes Status: Acute Assessment and plan: Seen on CTA patient has aspiration pna due to reflux 2nd to large hiatal hernia EGD today (2) Acute respiratory failure with hypoxia Current Visit: Yes Status: Resolved Assessment and plan: 2nd to aspiration pna in setting of COPD and large hiatal hernia/GERD, PE ruled out repeat CTA negative weaned off of supplemental O2 continue neubulizer and unasyn day 3 (3) Pneumonia Current Visit: Yes Status: Acute Assessment and plan: CTA shows evidence of Left lower lobe pneumonia secondary to aspiration. leukocytosis resolved cntinue unasyn Blood cultures and sputum culture negative Qualifiers: Pneumonia type: due to unspecified organism Laterality: left Lung location: lower lobe of lung Qualified Code(s): J18.1 - Lobar pneumonia, unspecified organism (4) Chest pain Current Visit: Yes Status: Acute Assessment and plan: patient had aching epigastric pain that radiated to the back Troponin 0.04, 0.03, 0.03: Adynamic likely secondary to demand ischemia. Amylase and lipase within normal limits. repeat EKG shows sinus rhythm with no ST-T wave changes. echocardiogram report LVEF 65% without wall motion abnormalaties, moderate LV diastoic dysfunction. continue aspirin, statin, metoprolol. this is likely non-cardiac chest pain 2nd to large hiatal hernia and GERD. Qualifiers: Chest pain type: other chest pain Qualified Code(s): R07.89 - Other chest pain; R07.8 - Other chest pain (5) COPD (chronic obstructive pulmonary disease) Current Visit: Yes Status: Chronic Assessment and plan: hx of COPD not in exacerbation continue home nebulizer treatment Qualifiers: COPD type: chronic bronchitis Chronic bronchitis type: simple Qualified Code(s): J41.0 - Simple chronic bronchitis - Subjective Interval history: Denies epigastric pain, sob. She denies headache, chest pain, N/V/D. NPO for egd. - Constitutional Vitals: Temp Pulse Resp BP Pulse Ox 98.6 F 79 16 113/85 90 07/11/17 07:39 07/11/17 08:15 07/11/17 07:46 07/11/17 07:39 07/11/17 07:46 General appearance: Present: mild distress, A&O X 3, pleasant, answers questions appropriately - Other Additional findings: General: plesant without distress Heart: Regular rate and rhythm with no murmur Lungs: Clear to auscultation bilaterally Abdomen: mild epigastric tenderness to palpation, +BS, absent distention Skin: warm and dry Extremities: Absent pedal edema, Neuro: alert oriented x3 Vascular: Pedal and radial pulses 2 out of 4 Internal Medicine: Result - Labs CBC & Chem 7: 07/10/17 03:08 07/10/17 03:08 - ABG Interpretation ABG results: PT/INR, D-dimer PT 14.1 Seconds (9.4-12.1) H 07/08/17 21:33 D-Dimer 1175 ng/mLFEU (0-500) H 07/08/17 18:29 Consult Discharge Plan - Plan Referrals: Amanda Maravilla, B[facility] [employer]INGER [Advanced Practice Nurse] - 07/19/17 2:00 pm <Lorenzo Menon H - Last Filed: 07/11/17 12:55> Date of Encounter: 07/11/17 - Assessment and plan (1) Acute respiratory failure with hypoxia Current Visit: Yes Status: Resolved (2) Pneumonia Current Visit: Yes Status: Acute Qualifiers: Pneumonia type: due to unspecified organism Laterality: left Lung location: lower lobe of lung Qualified Code(s): J18.1 - Lobar pneumonia, unspecified organism (3) Elevated d-dimer Current Visit: Yes Status: Ruled-out (4) Chest pain Current Visit: Yes Status: Acute Qualifiers: Chest pain type: other chest pain Qualified Code(s): R07.89 - Other chest pain; R07.8 - Other chest pain (5) Acute kidney injury Current Visit: Yes Status: Resolved (6) COPD (chronic obstructive pulmonary disease) Current Visit: Yes Status: Chronic Qualifiers: COPD type: chronic bronchitis Chronic bronchitis type: simple Qualified Code(s): J41.0 - Simple chronic bronchitis (7) Large hiatal hernia Current Visit: Yes Status: Acute - Constitutional Vitals: Temp Pulse Resp BP Pulse Ox 98.4 F 81 18 112/67 94 07/11/17 11:41 07/11/17 11:41 07/11/17 11:41 07/11/17 11:41 07/11/17 11:41 Internal Medicine: Result - Labs CBC & Chem 7: 07/10/17 03:08 07/10/17 03:08 - ABG Interpretation ABG results: PT/INR, D-dimer PT 14.1 Seconds (9.4-12.1) H 07/08/17 21:33 D-Dimer 1175 ng/mLFEU (0-500) H 07/08/17 18:29 - Attending Attestation acute hypoxic resp failure secondary to aspiration pneumonia present upon admission she switched to Unasyn, day 3 large hiatal hernia, follow up as outpatient with surgery EGD today per GI no COPD exacerbation I examined this patient and my medical decision-making was reviewed with the Resident Physician. I agree with the documented findings, disposition and treatment plan as described except to the extent set forth below.
[2017-07-11] MEDS ORDERED: *HR* FentaNYL (PF) 100 MCG/2 ML VIAL ONE (16:54)
[2017-07-11] MEDS ORDERED: *HR* Midazolam HCl 5 MG/5 ML VIAL IVP ONE (16:54)
[2017-07-11] MEDS ORDERED: Tetracaine/Benzocaine/Butamben 200MG/SPRAY (100SPY/BOT) MM ONE (17:13)
[2017-07-11] MEDS ORDERED: Simethicone 40 MG/0.6 ML MLS IR ONE (17:13)
[2017-07-11] MEDS ORDERED: *HR* Midazolam HCl 2 MG/2 ML VIAL IVP ONE (17:13)
[2017-07-11] MEDS ORDERED: *HR* FentaNYL (PF) 100 MCG/2 ML VIAL IVP ONE (17:13)
[2017-07-12 04:45] LABS: Basophils % 0.6 %; Eosinophils # 0.3 K/mcL (0.0-0.6); Eosinophils % 3.9 %; Hematocrit 32.4 % (35.3-44.9); Hemoglobin 10.3 g/dL (11.5-15.4); Immature Granulocytes % 0.3 % (0-4); Lymphocytes # 2.2 K/mcL (0.6-4.6); Lymphocytes % 33.2 %; Mean Corpuscular HGB Conc 31.8 g/dL (31.6-35.5); Mean Corpuscular Hemoglobin 27.2 pg (28.0-33.3); Mean Corpuscular Volume 85.7 fL (83.0-100.0); Mean Platelet Volume 9.3 fL (9.4-12.4); Monocytes # 0.5 K/mcL (0.0-1.3); Monocytes % 8.2 %; Neutrophils # 3.5 K/mcL (1.6-8.9); Platelet Count 335 K/mcL (140-400); Red Blood Count 3.78 M/mcL (3.82-4.97); Red Cell Distribution Width 13.9 % (11.5-14.5); Segmented Neutrophils % 53.8 %
[2017-07-12] MEDS: Ampicillin/Sulbactam 1,500 MG in 0.9 % Sodium Chloride Mini Bag 100 ML IVPB SCH (06:02)
[2017-07-12 07:27] VITALS: BP 133/85
[2017-07-12] MEDS: Albuterol 2.5 MG/3 ML NEBULIZER IH SCH (07:33)
[2017-07-12] MEDS: BuPROPion XL (24 HR) 150 MG TABLET PO SCH (08:43)
[2017-07-12] MEDS: Pantoprazole 40 MG VIAL IVP SCH (08:43)
[2017-07-12] MEDS: Aspirin 81 MG TAB.CHEW PO SCH (08:43)
--- NOTE | 2017-07-12 08:49 | Discharge Summary ---
<Favian Cross - Last Filed: 07/12/17 08:47> - NOTES TO OUTPATIENT PROVIDER Notes to Outpatient Provider: presented with epigastric pain that radiated to the back. 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 CT showed large hiatal hernia and she will be referred to surgery for evaluation for surgical resection. New medications include PPI twice a day and Carafate 3 times a day. Orders not resulted at time of discharge: Pending orders 07/11/17 17:27 Surgical Pathology [PTH] Routine Date of Encounter: 07/12/17 Time of Encounter: 08:47 - Discharge Diagnosis (1) Acute respiratory failure with hypoxia Priority: Primary Status: Resolved (2) Large hiatal hernia Priority: Secondary Status: Acute (3) Pneumonia Priority: Secondary Status: Acute Qualifiers: Pneumonia type: due to unspecified organism Laterality: left Lung location: lower lobe of lung Qualified Code(s): J18.1 - Lobar pneumonia, unspecified organism (4) Chest pain Priority: Secondary Status: Acute Qualifiers: Chest pain type: other chest pain Qualified Code(s): R07.89 - Other chest pain; R07.8 - Other chest pain (5) COPD (chronic obstructive pulmonary disease) Priority: Secondary Status: Chronic Qualifiers: COPD type: chronic bronchitis Chronic bronchitis type: simple Qualified Code(s): J41.0 - Simple chronic bronchitis Hospital course: Ms. Back is a 61 year old female presented with epigastric pain of 2 days' radiate to the back. Patient reports having a history of gastric reflux and additionally has been having frequent metallic taste in the mouth at night. At presentation she was found to be hypoxic and tachycardic started on O2. Patient elevated d-dimer and CTA was negative for PE. CTA did show a left lower lobe pneumonia possible aspiration, and large hiatal hernia. Patient was started on IV antibiotics for pneumonia, and DuoNeb's. Patient was also evaluated for chest pain as her initial troponin was 0.04. Thereafter showed negative troponins. EKG showed normal sinus rhythm with no ST-T wave changes. Echocardiogram showed LVEF of 65% without wall motion colitis with moderate left ventricular diastolic dysfunction. Patient was continued on her home dose of aspirin and statin and beta danny. It was determined that her chest was likely noncardiac's and secondary to hiatal hernia. Patient also received IV fluids for ANGIE which is now resolved. GI was consulted and patient read EGD which showed salmon colored mucosa and a biopsy was taken which is pending. She was recommended to go home on the PIP and Carafate 3 times a day. Patient was able to be weaned off oxygen shortness of breath has resolved. Blood culture and sputum culture were negative. Urine culture is negative. She has received 5 days of IV antibiotics She will go home with 2 additional days of augmentin to finish a 7 day course of antibiotics for her pneumonia. Patient will follow-up with surgery outpatient. Discharge discussed with: patient - Time Spent with Patient Total time spent providing and/or coordinating discharge services: - Discharge Medications Prescriptions: Amoxicillin/Clavulanate [Augmentin] 500 mg PO BIDWM #5 tablet Pantoprazole Sodium 40 mg PO BID #60 tablet. Sucralfate [Carafate] 1 gm PO TID #90 oral.susp Home Medications: Albuterol Sulfate [Ventolin Hfa] 2 puff IH Q4H PRN 03/27/17 [History] Amitriptyline [Elavil] 50 mg PO HS 03/27/17 [History] Atorvastatin Calcium [Lipitor] 80 mg PO HS 03/27/17 [History] Bupropion HCl [Wellbutrin Xl] 300 mg PO QAM 03/27/17 [History] Escitalopram [Lexapro] 20 mg PO DAILY 03/27/17 [History] Metoprolol [Lopressor] 12.5 mg PO BID 03/27/17 [History] Potassium Chloride [K-Tab ER] 10 meq PO DAILY 03/27/17 [History] Ranitidine HCl [Zantac] 150 mg PO BID 03/27/17 [History] SUMAtriptan succinate [Imitrex] 50 mg PO Q2H PRN 03/27/17 [History] Tramadol HCl [Ultram] 50 mg PO Q6H PRN 03/27/17 [History] hydroCHLOROthiazide [Hydrochlorothiazide] 25 mg PO DAILY 03/27/17 [History] Ferrous Sulfate [Iron] 325 mg PO BID #60 tablet 03/29/17 [Rx] Albuterol Neb [Proventil Neb] 2.5 mg IH TID 07/08/17 [History] Polyethylene Glycol 3350 [MiraLAX] 17 gm PO DAILY PRN 07/08/17 [History] Tizanidine HCl 4 mg PO Q8H PRN 07/08/17 [History] Amoxicillin/Clavulanate [Augmentin] 500 mg PO BIDWM #5 tablet 07/12/17 [Rx] Aspirin 81 mg PO DAILY tab.chew 07/12/17 [Rx] Pantoprazole Sodium 40 mg PO BID #60 tablet. 07/12/17 [Rx] Sucralfate [Carafate] 1 gm PO TID #90 oral.susp 07/12/17 [Rx] Allergies/Adverse Reactions: 3 Allergy/AdvReac Type Severity Reaction Status Date / Time lorazepam AdvReac TACHYCARDIA Verified 07/08/17 18:12 Date of admission: 07/09/17 16:32 Primary care physician: Gisele House, Consults: GI Discharging clinician: Favian Cross Anticipated date of discharge: 07/12/17 - Constitutional Vitals: Temp Pulse Resp BP Pulse Ox 98.5 F 93 16 133/85 94 07/12/17 07:25 07/12/17 07:25 07/12/17 07:34 07/12/17 07:25 07/12/17 07:34 General appearance: Present: mild distress, A&O X 3, pleasant, answers questions appropriately - Other Additional findings: General: Pleasant without distress HEENT: Head atraumatic, normocephalic, EOMI, PERRL, neck nontender to palpation , absent lymphadenopathy, Moist Mucous Membranes, Heart: Regular rate and rhythm with no murmur Lungs: Clear to auscultation bilaterally Abdomen: Soft nontender, nondistended positive bowel sounds Skin: warm and dry Extremities: Absent pedal edema, Neuro: Cranial nerves II through XII intact, UE and LE sensation equal bilaterally, UE and LEstrength 5/5, alert oriented 3, Heel to sexton intact, finger to nose intact, Gait intact, rhombergs sign negative, b/l plantar reflexes downwards Vascular: Pedal and radial pulses 2 out of 4 - Patient Status Disposition: Home, Self-Care Condition: Fair Functional capacity at discharge: independent ambulation Overall status at discharge: patient is progressing back to baseline - Discharge Instructions Instructions: Sucralfate (By mouth), Amoxicillin/Clavulanate Potassium (By mouth), Pantoprazole (By mouth), Chest Pain (DC) Follow Up With: Jake Hood MD [Partnered Physician] - 07/23/17 8:40 am (Patient admitted for aspiration pna 2nd to large hiatal hernia. EGD shows salmon colored mucosa which was biposied and pending. ) Amanda Maravilla, TING [Advanced Practice Nurse] - 07/19/17 2:00 pm Nishant Goldstein MD [Partnered Physician] - (Sent web request on 07/12/17 @10:00am) - Diet and Activity Activity: increase activity as tolerated Diet: advance to your usual diet <Lorenzo Menon - Last Filed: 07/12/17 17:01> Orders not resulted at time of discharge: Pending orders 07/11/17 17:27 Surgical Pathology [PTH] Routine Date of Encounter: 07/12/17 - Discharge Diagnosis (1) Acute respiratory failure with hypoxia Status: Resolved (2) Pneumonia Status: Acute Qualifiers: Pneumonia type: due to unspecified organism Laterality: left Lung location: lower lobe of lung Qualified Code(s): J18.1 - Lobar pneumonia, unspecified organism (3) Elevated d-dimer Status: Ruled-out (4) Chest pain Status: Acute Qualifiers: Chest pain type: other chest pain Qualified Code(s): R07.89 - Other chest pain; R07.8 - Other chest pain (5) Acute kidney injury Status: Resolved (6) COPD (chronic obstructive pulmonary disease) Status: Chronic Qualifiers: COPD type: chronic bronchitis Chronic bronchitis type: simple Qualified Code(s): J41.0 - Simple chronic bronchitis (7) Large hiatal hernia Status: Acute Hospital course: Ms. Back is a 61 year old female - Time Spent with Patient Total time spent providing and/or coordinating discharge services: Date of admission: 07/09/17 16:32 Primary care physician: Gisele House, - Constitutional Vitals: Temp Pulse Resp BP Pulse Ox 98.5 F 93 16 133/85 94 07/12/17 07:25 07/12/17 07:25 07/12/17 07:34 07/12/17 07:25 07/12/17 07:34 - Attending Attestation acute hypoxic resp failure secondary to aspiration pneumonia present upon admission continue Amoxicillin and clavulanic acid large hiatal hernia, follow up with surgery as outpatient Carrington's esophagitis, continue PPI no COPD exacerbation time spent : 40 min I examined this patient and my medical decision-making was reviewed with the Resident Physician. I agree with the documented findings, disposition and treatment plan as described except to the extent set forth below.
== END 2017-07-12 10:29 | disposition home or self-care (01) | DRG 177 ==
LOC: 2NNU 18:07 → EMEROO 18:07 → 2NNU 22:45
PROVIDERS: ADMIT Pediatrics; ATTEND Registered Nurse
PROC: ENDOEBX (2017-07-11 13:00)